=== PATIENT | male | born 1940 | race Caucasian/White ===

== ENCOUNTER 2016-08-24 12:18 | Emergency (ER) | payer OTHER, MEDICAID ==
[~2016-08-24] VITALS: Ht 182.9 cm; Wt 60.0 kg
[~2016-08-24 12:18] MED LIST: ASPI81TA82 PO; INDO25CA PO; PERC5TAB12 PO; PRED20 PO; TIOT18I INH
[2016-08-24 12:23] VITALS: BP 133/63; PULSE 68; RESP 28; TEMP 97.9; O2SAT 96
[2016-08-24 12:59] VITALS: BP 119/68; PULSE 97; RESP 20; O2SAT 97
[2016-08-24 13:04] VITALS: O2SAT 97
[2016-08-24] MEDS ORDERED: RESP: ALBUTEROL 2.5 MG/3 ML NEB (SCH) INH ONE (13:15)
--- NOTE | 2016-08-24 13:29 | PD ---
HPI Chief Complaint: Respiratory Symptoms Time Seen by Provider: 13:24 Travel History International Travel<30 days: No Contact w/Intl Traveler<30days: No Traveled to known affect area: No History of Present Illness HPI 75-year-old male that presents to the ED for evaluation of shortness of breath as well as leg swelling. Patient has a chronic history of COPD and uses inhalers at home. Patient also has a history of dementia and is somewhat of a poor historian. Per family members decided to start a couple days ago. Per patient is bilaterally. History of gout but denies this feeling like gout. The patient is not painful at all. Patient has swelling on both lower legs around the ankles. No history of blood clots. Per family members he has lost some weight for the past couple of days. Unclear is because he is not eating or something else. Patient is very skinny on examination. He himself. Not complaining of any shortness of breath but per family he has been somewhat short of breath. More noticeable in the past month. History of old smoking a has not smoked for 5 years. Coughing phlegm but not more than usual. Patient is short of breath with movement. Takes no oxygen. Patient was seen by her primary care doctor for evaluation of this but he recommended that he comes here to get evaluated. He denies any chest pain. He complains of is of his sacrum that is painful when he sits but otherwise he has no other complaints. Per patient the pain is not severe and is 2 out of 10. No injuries that he can recall. Again history is somewhat limited because of the patient's mental status so most of the history is obtained from the family. 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) Social History Alcohol Use: No Tobacco Use: No Substance Use: No Allergies-Medications (Allergen,Severity, Reaction): Coded Allergies: No Known Allergies (Unverified , 07/24/15) Reported Meds & Prescriptions Reported Meds & Active Scripts Active Deltasone (Prednisone) 20 Mg Tab 2 Tab PO DAILY 5 Days Percocet 5-325 mg (Oxycodone/Acetaminophen) 1 Tab 1 Tab PO Q6H PRN Indomethacin 25 Mg Cap 25 Mg PO TID 7 Days Reported Spiriva 18 Mcg Oral Inh (Tiotropium [place]) 18 Mcg Inhp 18 Mcg INH DAILY Aspir-81 (Aspirin) 81 Mg Tab 81 Mg PO DAILY Review of Systems Except as stated in HPI: all other systems reviewed are Neg Physical Exam Narrative GENERAL: SKIN: Warm and dry. HEAD: Atraumatic. Normocephalic. EYES: Pupils equal and round. No scleral icterus. No injection or drainage. ENT: No nasal bleeding or discharge. Mucous membranes pink and moist. Tongue is midline. No blood deviation. NECK: Trachea midline. No JVD. CARDIOVASCULAR: Regular rate and rhythm. No murmurs, S3, S4. RESPIRATORY: No accessory muscle use. Mild rales heard in expiration on the lower lung alejandre. Breath sounds equal bilaterally. GASTROINTESTINAL: Abdomen soft, non-tender, nondistended. Hepatic and splenic margins not palpable. MUSCULOSKELETAL: Extremities without clubbing, cyanosis, or edema. No obvious deformities. Full range of motion of the upper and lower extremities bilaterally. 2+ pulses bilaterally. Mild tenderness to palpation around the tailbone on the sacrum of the lower back. No lumbar, thoracic, cervical spine tenderness to palpation. Patient is very skinny. 1+ pitting edema on the lower legs. Some mild erythema noted on the medial aspect of the left medial ankle. Not Warm to touch. Nontender. NEUROLOGICAL: Awake and alert. No obvious cranial nerve deficits. Motor grossly within normal limits. Five out of 5 muscle strength in the arms and legs. Normal speech. PSYCHIATRIC: Appropriate mood and affect; insight and judgment normal. Data Data Last Documented VS Vital Signs Date Time Temp Pulse Resp B/P Pulse Ox O2 Delivery O2 Flow Rate FiO2 08/24/16 13:04 97 Room Air 08/24/16 13:01 20 08/24/16 12:59 97 119/68 08/24/16 12:23 97.9 Orders Electrocardiogram (08/24/16 13:01) Complete Blood Count With Diff (08/24/16 13:01) Comprehensive Metabolic Panel (08/24/16 13:01) Ckmb (Isoenzyme) Profile (08/24/16 13:01) Troponin I (08/24/16 13:01) B-Type Natriuretic Peptide (08/24/16 13:01) Urinalysis - C+S If Indicated (08/24/16 13:01) Magnesium (Mg) (08/24/16 13:01) Thyroid Stimulating Hormone (08/24/16 13:01) Chest, Single Ap (08/24/16 13:01) Iv Access Insert/Monitor (08/24/16 13:01) Ecg Monitoring (08/24/16 13:01) Oximetry (08/24/16 13:01) Us Leg Venous Doppler Bilat (08/24/16 ) Albuterol Neb (Albuterol Neb) (08/24/16 13:15) Labs Laboratory Tests Test 08/24/16 13:15 White Blood Count 9.2 TH/MM3 Red Blood Count 4.55 MIL/MM3 Hemoglobin 14.1 GM/DL Hematocrit 41.6 % Mean Corpuscular Volume 91.5 FL Mean Corpuscular Hemoglobin 31.0 PG Mean Corpuscular Hemoglobin 33.9 % Concent Red Cell Distribution Width 13.0 % Platelet Count 313 TH/MM3 Mean Platelet Volume 8.2 FL Neutrophils (%) (Auto) 84.8 % Lymphocytes (%) (Auto) 8.6 % Monocytes (%) (Auto) 4.8 % Eosinophils (%) (Auto) 1.3 % Basophils (%) (Auto) 0.5 % Neutrophils # (Auto) 7.8 TH/MM3 Lymphocytes # (Auto) 0.8 TH/MM3 Monocytes # (Auto) 0.4 TH/MM3 Eosinophils # (Auto) 0.1 TH/MM3 Basophils # (Auto) 0.0 TH/MM3 CBC Comment DIFF FINAL Differential Comment Sodium Level 136 MEQ/L Potassium Level 4.3 MEQ/L Chloride Level 100 MEQ/L Carbon Dioxide Level 26.5 MEQ/L Anion Gap 10 MEQ/L Blood Urea Nitrogen 54 MG/DL Creatinine 2.33 MG/DL Estimat Glomerular Filtration 28 ML/MIN Rate Random Glucose 92 MG/DL Calcium Level 8.7 MG/DL Magnesium Level 2.2 MG/DL Total Bilirubin 0.4 MG/DL Aspartate Amino Transf 14 U/L (AST/SGOT) Alanine Aminotransferase 10 U/L (ALT/SGPT) Alkaline Phosphatase 52 U/L Total Creatine Kinase 31 U/L Troponin I LESS THAN 0.02 NG/ML B-Type Natriuretic Peptide 78 PG/ML Total Protein 7.8 GM/DL Albumin 3.0 GM/DL Thyroid Stimulating Hormone 1.260 uIU/ML 3rd Gen [facility] Medical Decision Making Medical Screen Exam Complete: Yes Emergency Medical Condition: Yes Medical Record Reviewed: Yes Interpretation(s) CBC & BMP Diagram 08/24/16 13:15 troponin and CKMB negative EKG shows sinus rhythm with no sign of acute ischemia or arrhythmia read by me and attending. Last Impressions Chest X-Ray 08/24/16 1301 Signed Impressions: Service Date/Time: Wednesday, August 24, 2016 13:34 - CONCLUSION: 1. Findings consistent with obstructive pulmonary disease with a small subcentimeter nodular opacity seen in the right midlung zone. Although this may be artifactual in etiology, pulmonary nodule cannot be excluded. Consider chest CT or oblique radiographs for further evaluation on an outpatient basis as clinically warranted. Maximilian Aiken MD Lower Extremity Ultrasound 08/24/16 0000 Signed Impressions: Service Date/Time: Monday, August 24, 2016 13:16 - CONCLUSION: No evidence of deep venous thrombosis within the lower extremities. Dayday Rice MD Differential Diagnosis COPD exacerbation versus dementia versus mass versus pneumonia versus CHF versus swelling versus DVT versus PE Narrative Course 75-year-old male that presents to the ED for evaluation of shortness of breath and lower leg swelling. Patient was properly examined and was found to have signs and symptoms of unclear etiology. February recommend labs and imaging. Patient was given breathing treatment here. No history of CHF. Patient does have a history of gout but this appears to be different from his normal gout per patient. Patient has swelling of both legs. Left leg does appear to be somewhat erythematous but not warm to the touch. 2+ pulses. No neurological deficits. Labs and imaging ordered. Labs and imaging show what appears to be acute kidney injury.". This is old or new. Case was discussed in my attending Dr. Espinosa who was made aware of findings recommends admission. His was discussed with the patient and the family and patient adamantly wants to leave. Per patient he does not want to stay in the hospital and wants to go home. Family and patient understands findings and recommendation to keep them to do further workup but he still declines. AMA: The risks of leaving against medical advice without further evaluation treatment were discussed with the patient. These risks include cardiac dysfunction, cardiac dysrhythmia, possible heart attack, possible stroke or . The patient indicated understanding of these risks and appeared to have the capacity to make this decision. Diagnosis Primary Impression: Left against medical advice Additional Impression: Acute kidney injury Patient Instructions: General Instructions Additional Instructions: F/u with your PCP. See ED if worst. Med/Other Pt SpecificInfo: No Change to Meds Disposition: 07 AGAINST MEDICAL ADVICE Condition: Stable Artur Lopez Aug 24, 2016 13:29
[2016-08-24 13:32] LABS: AUTOMATED NEUTROPHIL # 7.8 TH/MM3 (1.8-7.7); BASOPHIL % 0.5 % (0.0-2.0); EOSINOPHIL # 0.1 TH/MM3 (0-0.4); EOSINOPHIL % 1.3 % (0.0-4.0); HEMATOCRIT 41.6 % (39.0-51.0); HEMO FLAGS DIFF FINAL; LYMPH % 8.6 % (9.0-44.0); LYMPHOCYTE # 0.8 TH/MM3 (1.0-4.8); MEAN CELL VOLUME 91.5 FL (80.0-100.0); MEAN CORPUSCULAR HGB CONC 33.9 % (32.0-36.0); MONO % 4.8 % (0.0-8.0); NEUT % 84.8 % (16.0-70.0); PLATELET COUNT 313 TH/MM3 (150-450); RED BLOOD COUNT 4.55 MIL/MM3 (4.50-5.90); WHITE BLOOD COUNT 9.2 TH/MM3 (4.0-11.0)
[2016-08-24 13:51] LABS: ANION GAP 10 MEQ/L (5-15); AST (GOT) 14 U/L (15-37); BICARBONATE 26.5 MEQ/L (21.0-32.0); BLOOD UREA NITROGEN 54 MG/DL (7-18); CHLORIDE 100 MEQ/L (98-107); GLOMERULAR FILTRATION RATE 28 ML/MIN (>89); MAGNESIUM 2.2 MG/DL (1.5-2.5); POTASSIUM 4.3 MEQ/L (3.5-5.1); SODIUM (NA) 136 MEQ/L (136-145)
--- NOTE | 2016-08-24 14:01 | RADRPT ---
EXAM DATE/TIME: 08/24/2016 13:16 [facility] COMPARISON: No previous studies available for comparison. INDICATIONS : Bilateral leg swelling. MEDICAL HISTORY : Hypertension. Chronic obstructive pulmonary disease. Gout. Skin cancer. SURGICAL HISTORY : Lower lip sqaumous cell carcinoma removed. ENCOUNTER: Initial ACUITY: 4 - 6 days PAIN SCORE: 0/10 LOCATION: Bilateral legs. TECHNIQUE: Venous ultrasound of the left and right leg was performed from the inguinal ligament to the proximal calf. Real-time, color Doppler and spectral tracing, compression and augmentation techniques were us ed. FINDINGS: RIGHT LEG: There is normal compressibility of the deep venous system from the inguinal region to the proximal ca lf. No echogenic clot is seen in the lumen of the common femoral, femoral, popliteal, and posterior tibial veins. There is a normal response of the venous system to proximal and distal augmentation an d respiration. LEFT LEG: There is normal compressibility of the deep venous system from the inguinal region to the proximal ca lf. No echogenic clot is seen in the lumen of the common femoral, femoral, popliteal, and posterior tibial veins. There is a normal response of the venous system to proximal and distal augmentation an d respiration. CONCLUSION: No evidence of deep venous thrombosis within the lower extremities. Dayday Rice MD on August 24, 2016 at 13:59 Board Certified Radiologist. This report was verified electronically.
[2016-08-24 14:10] LABS: ALKALINE PHOSPHATASE 52 U/L (45-117); ALT (GPT) 10 U/L (12-78); TOTAL BILIRUBIN ADULT 0.4 MG/DL (0.2-1.0)
--- NOTE | 2016-08-24 14:12 | RADRPT ---
EXAM DATE/TIME: 08/24/2016 13:34 [facility] COMPARISON: No previous studies available for comparison. INDICATIONS : Patient is short of breath since yesterday. MEDICAL HISTORY : None. SURGICAL HISTORY : None. ENCOUNTER: Initial ACUITY: 1 day PAIN SCORE: 0/10 LOCATION: Bilateral chest FINDINGS: Lungs are hyperexpanded with minimal interstitial prominence similar to prior exam. There is a subtle subcentimeter nodular opacity seen in the right midlung zone peripherally which may reflect summatio n of shadows. Lungs are otherwise clear. Cardiomediastinal contours are within normal limits. Remaind er of the exam is unchanged. CONCLUSION: 1. Findings consistent with obstructive pulmonary disease with a small subcentimeter nodular opacity seen in the right midlung zone. Although this may be artifactual in etiology, pulmonary nodule cannot be excluded. Consider chest CT or oblique radiographs for further evaluation on an outpatient basis as clinically warranted. Maximilian Aiken MD on August 24, 2016 at 14:05 Board Certified Radiologist. This report was verified electronically.
[2016-08-24 14:14] LABS: CREATINE KINASE 31 U/L (39-308)
[2016-08-24 15:06] LABS: BLOOD, URINE TRACE (NEG); COMMENT (UR) CULT NOT INDICATED; CULTURE IF INDICATED CULT NOT INDICATED; GLUCOSE,URINE NEG (NEG); KETONE, URINE 10 mg/dL (NEG); MUCUS URINE FEW /lpf (OCC); NITRITE,URINE NEG (NEG); SQUAMOUS EPITHELIAL CELL URINE <1 /hpf (0-5); URINE COLOR YELLOW (YELLW/STRAW)
[2016-08-24 15:15] VITALS: BP 124/78
--- NOTE | 2016-08-25 15:17 | EKG ---
Date Performed: 08/24/2016 Time Performed: 13:10:21 PTAGE: 75 years EKG: Sinus rhythm WITH FREQUENT SUPRAVENTRICULAR PREMATURE COMPLEXES ABNORMAL RHYTHM ECG Compared to prior tracing no significant change PREVIOUS TRACING 07/24/2015 @ 09.48 DOCTOR: Alvarado Lopez Interpretating Date/Time 08/25/2016 15:15:46
== END 2016-08-24 15:17 | disposition left against medical advice (07) ==
LOC: NEPE 12:18
DX: N17.9 Acute kidney failure, unspecified (principal); R94.31 Abnormal electrocardiogram [ECG] [EKG]; F03.90 Unspecified dementia, unspecified severity, without behavioral disturbance, psychotic disturbance, mood disturbance, and anxiety; I10 Essential (primary) hypertension; Z53.21 Procedure and treatment not carried out due to patient leaving prior to being seen by health care provider
CPT/HCPCS: 71010; 80053; 81001; 82550; 83735; 83880; 84443; 84484; 85025; 93005; 93970; 94664; 99285; J7613

== ENCOUNTER 2017-10-03 19:46 | Inpatient (IN) ==
[2017-10-04 00:29] LABS: Baso % (Auto) 0.3 % (0.0-2.0); Eos # (Auto) 0.1 th/mm3 (0.0-0.4); Eos % (Auto) 0.6 % (0.0-4.0); Hematocrit 46.6 % (39.0-51.0); Hemoglobin 16.5 gm/dL (13.0-17.0); Lymph # (Auto) 1.4 th/mm3 (1.0-4.8); Lymph % (Auto) 9.3 % (9.0-44.0); Mean Corpuscular HGB Conc 35.3 % (32.0-36.0); Mean Corpuscular Hemoglobin 32.5 pg (27.0-34.0); Mean Corpuscular Volume 91.9 fL (80.0-100.0); Mean Platelet Volume 7.4 fL (7.0-11.0); Mono # (Auto) 0.9 th/mm3 (0.0-0.9); Mono % (Auto) 5.6 % (0.0-8.0); Neut # (Auto) 13.1 th/mm3 (1.8-7.7); Neut % (Auto) 84.2 % (16.0-70.0); Platelet Count 256 th/mm3 (150-450); Red Blood Count 5.08 mil/mm3 (4.50-5.90); Red Cell Distribution Width 14.1 % (11.6-17.2); White Blood Count 15.5 th/mm3 (4.0-11.0)
[2017-10-04 00:39] LABS: Activated Partial Thrombo Time 29.7 sec (24.3-30.1); INR 1.2 Ratio
[2017-10-04 00:43] LABS: Alanine Aminotransferase 17 U/L (12-78); Albumin 4.2 g/dL (3.4-5.0); Anion Gap 12 meq/L (5-15); Aspartate Aminotransferase 22 U/L (15-37); Blood Urea Nitrogen 21 mg/dL (7-18); Calcium 8.9 mg/dL (8.5-10.1); Carbon Dioxide 25.5 meq/L (21.0-32.0); Chloride 94 meq/L (98-107); Glomerular Filtration Rate 41 mL/min (>89); Glucose,Random 104 mg/dL (74-106); Lipase 88 U/L (73-393); Potassium 3.9 meq/L (3.5-5.1); Sodium 131 meq/L (136-145)
--- NOTE | 2017-10-04 00:43 | ED ---
HPI General Chief complaint: Back Pain/Injury Stated complaint: Time Seen by Provider: 10/04/17 00:07 Source: patient Limitations: no limitations History of Present Illness HPI narrative: The patient is a 76 year old male who presents to the [facility] emergency department with a history of inability to urinate for the last 2 days. The patient reports that he has never had this happen previously. The patient reports that he has been using regularly a new medication over the last 2 days, a nasal decongestant spray. He reports that he came into the emergency department this evening when he could not take the lower abdominal pain sensation of needing to urinate without being able to. He denies having any history of prostate hypertrophy. He denies seeing a urologist. He denies having any chest pain or chest pressure associated with this. He reports that he does have chronic shortness of breath is no worse than usual related to his COPD. On review of systems otherwise, the patient denies having any known recent fevers, increased productivity to his chronic cough, neck pain,vomiting, diarrhea, urinary symptoms, or neurologic symptoms. The patient reports that his last bowel movement was 2 days ago. Related Data Home Medications Medication Instructions Recorded Confirmed Aspir-81 81 mg PO ONCE 10/04/17 10/04/17 albuterol sulfate 2.5 mg INHALATION Q4H PRN 10/04/17 10/04/17 tiotropium bromide [Spiriva 2 puff INHALATION DAILY 10/04/17 10/04/17 Respimat] Allergies Allergy/AdvReac Type Severity Reaction Status Date / Time No Known Allergies Allergy Uncoded 07/24/15 09:28 Review of Systems ROS Unobtainable All other systems reviewed negative except as stated in HPI PMFSH Medical History Medical History Anxiety (Acute) COPD (chronic obstructive pulmonary disease) (Acute) Gout (Acute) Hypertension (Acute) Skin cancer (Acute) Surgical History Surgical History Status post surgical removal of malignant neoplasm of skin (Acute) Social History Social History Substance History: Active Abuse Smoking Status: Former smoker How Often Do You Have a Drink Containing Alcohol: 2 to 3 times a week Recent Travel in [facility] within the Last 8 Weeks: No Recent Out of Country Travel within the Last 8 Weeks: No Exam Const General: cooperative, no acute distress and well developed Nutritional Appearance: well nourished Orientation: alert, awake and oriented x3 HENMT Head: normocephalic and atraumatic Nose: no nasal discharge and no epistaxis Mouth: moist mucous membranes Throat: posterior oropharynx normal Eyes Sclera: normal sclerae Pupils: PERRL Neck Neck: normal visual inspection, no meningeal signs, trachea midline and no JVD Resp Effort & Inspection: no use of accessory muscles Auscultation: clear to auscultation bilaterally Cardio Rate: tachycardic (Heart rate of low 100s) Rhythm: abnormal rhythm (Irregularly irregular with telemetry that appears to be consistent with atrial fibrillation) Heart Sounds: no murmurs GI Inspection: non-distended Palpation: no hepatosplenomegaly and tender (Suprapubic distention) suprapubicly ; not in the LLQ, not in the RLQ, not in the LUQ and not in the RUQ Skin General: dry skin (warm) Neuro General: alert, awake and oriented x3 Cranial Nerves: other (No facial asymmetry) Speech: speech normal Motor: no movement abnormalities noted Extrem General: normal to inspection, no clubbing, no cyanosis and no edema Psych Mood: congruent mood Affect: normal affect Judgment: judgment good Course Consultations Consultation #1: The patient's case including history, pertinent physical examination findings, and laboratory studies were discussed with Dr. Chambers. It was agreed that the patient would be admitted to the hospitalist service. Initial Documented Vital Signs Temperature 97.8 F 10/03/17 20:57 Pulse Rate 118 H 10/03/17 20:57 Respiratory Rate 18 10/03/17 20:57 Blood Pressure 189/92 H 10/03/17 20:57 Pulse Oximetry 95 10/03/17 20:57 Last Documented Vital Signs Temperature 97.8 F 10/03/17 20:57 Pulse Rate 118 H 10/03/17 20:57 Respiratory Rate 18 10/03/17 20:57 Blood Pressure 189/92 H 10/03/17 20:57 Pulse Oximetry 95 10/03/17 20:57 Medical Decision Making MDM Narrative Medical decision making narrative: During the course of the patient's emergency department visit, the patient's history, examination, and differential diagnosis were reviewed with the patient. The patient was placed on a workforce development assistant with oximetry and frequent blood pressure monitoring. The patient had IV access obtained and blood work sent for analysis. Diagnostic evaluation was started regarding urinary. Regarding the patient's irregular heart rhythm and EKG was done. The patient's EKG reveals atrial fibrillation with RVR, heart rate of 100, QRS duration is 97 appears to be atrial fibrillation, no acute ST segment nonspecific ST-T wave abnormalities noted. This is compared to prior EKGs done at this facility and A. fib appears to be new. Patient is not aware of any prior history of atrial fibrillation. The patient's laboratory studies were remarkable for a white count of 15.5, neutrophil percent 82.4, platelets 256, hemoglobin 16.5, PT 12, PTT 29.7, chemistry reveals a total bilirubin of 1.2, sodium 131, GFR 41, creatinine 1.6 for which is actually improved compared to the patient's last creatinine at this facility, CK-MB 5.1, chloride 94, BUN 21, BNP 780. Chest x-ray shows evidence of COPD, no other acute abnormality. The patient will be admitted to the hospital for new onset atrial fibrillation. The patient's atrial fibrillation and urinary retention may be related to excessive nasal decongestent use over the last 2 days. The patient's results were discussed with the patient, including the plan of care. I explained that further testing and/ or monitoring is indicated based on the patient's history, examination, and/ or laboratory findings. Therefore, I recommended admission for additional evaluation. The patient expressed understanding and was agreeable with this plan. The patient was admitted to the hospital in stable condition and sent to a bed under the care of [facility] service. Differential Diagnosis Differential Diagnosis: Urinary retention related to benign prostatic hypertrophy, versus kidney failure Medical Records Medical records reviewed: Yes I reviewed the patient's medical records. Lab Data Lab results reviewed: Yes I reviewed the patient's lab results. Result diagrams: 10/04/17 00:20 10/04/17 00:20 Lab Results 10/04/17 10/04/17 10/04/17 Range/Units 00:20 00:20 00:20 WBC 15.5 H (4.0-11.0) th/mm3 RBC 5.08 (4.50-5.90) mil/mm3 Hgb 16.5 (13.0-17.0) gm/dL Hct 46.6 (39.0-51.0) % MCV 91.9 (80.0-100.0) fL MCH 32.5 (27.0-34.0) pg MCHC 35.3 (32.0-36.0) % RDW 14.1 (11.6-17.2) % Plt Count 256 (150-450) th/mm3 MPV 7.4 (7.0-11.0) fL Neut % (Auto) 84.2 H (16.0-70.0) % Lymph % (Auto) 9.3 (9.0-44.0) % [place] % (Auto) 5.6 (0.0-8.0) % Eos % (Auto) 0.6 (0.0-4.0) % Baso % (Auto) 0.3 (0.0-2.0) % Neut # (Auto) 13.1 H (1.8-7.7) th/mm3 Lymph # (Auto) 1.4 (1.0-4.8) th/mm3 [place] # (Auto) 0.9 (0.0-0.9) th/mm3 Eos # (Auto) 0.1 (0.0-0.4) th/mm3 Baso # (Auto) 0.0 (0.0-0.2) th/mm3 WBC Differential . Differential Comment Auto diff final PT 12.0 H (9.8-11.6) sec INR 1.2 Ratio APTT 29.7 (24.3-30.1) sec Sodium 131 L (136-145) meq/L Potassium 3.9 (3.5-5.1) meq/L Chloride 94 L (98-107) meq/L Carbon Dioxide 25.5 (21.0-32.0) meq/L Anion Gap 12 (5-15) meq/L BUN 21 H (7-18) mg/dL Creatinine 1.64 H (0.60-1.30) mg/dL Estimated GFR 41 L (>89) mL/min Random Glucose 104 (74-106) mg/dL Calcium 8.9 (8.5-10.1) mg/dL Total Bilirubin 1.2 H (0.2-1.0) mg/dL AST 22 (15-37) U/L ALT 17 (12-78) U/L Alkaline Phosphatase 51 (45-117) U/L Total Creatine Kinase 144 (39-308) U/L CK-MB (CK-2) 5.1 H (0.5-3.6) ng/mL Troponin I 0.02 (0.02-0.05) ng/mL B-Natriuretic Peptide (0-100) pg/mL Total Protein 8.1 (6.4-8.2) g/dL Albumin 4.2 (3.4-5.0) g/dL Lipase 88 (73-393) U/L Urine Color (Yellw/Straw) Urine Clarity (Clear) Urine pH (5.0-8.5) Ur Specific [place] (1.002-1.035) Urine Protein (Neg-Trace) mg/dL Urine Glucose (UA) (Negative) mg/dL Urine Ketones (Negative) mg/dL Urine Occult Blood (Negative) Urine Nitrate (Negative) Urine Bilirubin (Negative) Urine Urobilinogen (Less than 2) mg/dL Ur Leukocyte Esterase (Negative) Urine RBC (0-3) /hpf Urine WBC (0-5) /hpf Urine Mucus (Occasional) /lpf Micro UA Comment Urine Culture Comments 10/04/17 10/04/17 Range/Units 00:20 02:00 WBC (4.0-11.0) th/mm3 RBC (4.50-5.90) mil/mm3 Hgb (13.0-17.0) gm/dL Hct (39.0-51.0) % MCV (80.0-100.0) fL MCH (27.0-34.0) pg MCHC (32.0-36.0) % RDW (11.6-17.2) % Plt Count (150-450) th/mm3 MPV (7.0-11.0) fL Neut % (Auto) (16.0-70.0) % Lymph % (Auto) (9.0-44.0) % [place] % (Auto) (0.0-8.0) % Eos % (Auto) (0.0-4.0) % Baso % (Auto) (0.0-2.0) % Neut # (Auto) (1.8-7.7) th/mm3 Lymph # (Auto) (1.0-4.8) th/mm3 [place] # (Auto) (0.0-0.9) th/mm3 Eos # (Auto) (0.0-0.4) th/mm3 Baso # (Auto) (0.0-0.2) th/mm3 WBC Differential Differential Comment PT (9.8-11.6) sec INR Ratio APTT (24.3-30.1) sec Sodium (136-145) meq/L Potassium (3.5-5.1) meq/L Chloride (98-107) meq/L Carbon Dioxide (21.0-32.0) meq/L Anion Gap (5-15) meq/L BUN (7-18) mg/dL Creatinine (0.60-1.30) mg/dL Estimated GFR (>89) mL/min Random Glucose (74-106) mg/dL Calcium (8.5-10.1) mg/dL Total Bilirubin (0.2-1.0) mg/dL AST (15-37) U/L ALT (12-78) U/L Alkaline Phosphatase (45-117) U/L Total Creatine Kinase (39-308) U/L CK-MB (CK-2) (0.5-3.6) ng/mL Troponin I (0.02-0.05) ng/mL B-Natriuretic Peptide 780 H (0-100) pg/mL Total Protein (6.4-8.2) g/dL Albumin (3.4-5.0) g/dL Lipase (73-393) U/L Urine Color Yellow (Yellw/Straw) Urine Clarity Clear (Clear) Urine pH 5.0 (5.0-8.5) Ur Specific [place] 1.005 (1.002-1.035) Urine Protein Negative (Neg-Trace) mg/dL Urine Glucose (UA) Negative (Negative) mg/dL Urine Ketones Negative (Negative) mg/dL Urine Occult Blood Moderate H (Negative) Urine Nitrate Negative (Negative) Urine Bilirubin Negative (Negative) Urine Urobilinogen Less than 2 (Less than 2) mg/dL Ur Leukocyte Esterase Negative (Negative) Urine RBC 1 (0-3) /hpf Urine WBC 1 (0-5) /hpf Urine Mucus Few H (Occasional) /lpf Micro UA Comment Cath-culture not ind Urine Culture Comments Cath-cult not ind Imaging Data Radiologist's impression: Chest X-Ray 10/04/17 00:09 CONCLUSION: 1. Hyperinflation with some degree of COPD. 2. Probable nipple shadow in the right chest 3. No acute infiltrate ECG Data Attestation: I personally reviewed and interpreted this ECG as follows: Interpretation: The patient had an EKG done on arrival. The patient's EKG reveals atrial fibrillation with RVR with a heart rate of 100, nonspecific ST-T wave abnormalities, no acute ST segment elevation. QRS duration is 97 ms, QTC 413 ms. This is compared to a prior EKG done at this facility, last done August 24, 2016 which showed no evidence of atrial fibrillation and the patient does not recall any prior history of atrial fibrillation. Discharge Plan Discharge Disposition Patient Disposition: 30 Still Patient Discharge Details Diagnosis: New onset a-fib, Acute urinary retention Physicians Team ED Provider: Monica Babin Primary Care Provider: UNKNOWN, Attending Provider: Jennifer Chambers Other Providers: Major Prasad Status ED Status: Admitted Patient
[2017-10-04 00:46] LABS: Alkaline Phosphatase 51 U/L (45-117); Creatine Kinase 144 U/L (39-308); Total Protein 8.1 g/dL (6.4-8.2); Troponin I 0.02 ng/mL (0.02-0.05)
[2017-10-04 00:58] LABS: Creatine Kinase MB 5.1 ng/mL (0.5-3.6)
--- NOTE | 2017-10-04 01:13 | XR ---
EXAM DATE: 10/04/2017 12:33 AM EDT AGE/SEX: 76 years / Male INDICATIONS: Cough. CLINICAL DATA: This is the patient's initial encounter. Patient reports that signs and symptoms have been present for 1 day and indicates a pain score of 0/10. MEDICAL/SURGICAL HISTORY: None. None. COMPARISON: [facility] [place], CHEST SINGLE AP, 08/24/2016. . FINDINGS: A single AP view of the chest demonstrates symmetrically hyperinflated. No acute infiltrate or effusi on. Heart size is normal. Nodular density laterally in the right mid to lower chest may represent a nipple shadow. CONCLUSION: 1. Hyperinflation with some degree of COPD. 2. Probable nipple shadow in the right chest 3. No acute infiltrate Electronically signed by: Joe Granger MD 10/04/2017 1:12 AM EDT
[2017-10-04 02:18] LABS: Bilirubin,Urine Negative (Negative); Clarity,Urine Clear (Clear); Color,Urine Yellow (Yellw/Straw); Glucose,Urine (UA) Negative (Negative); Leukocyte Esterase,Urine Negative (Negative); Mucus,Urine Few /lpf (Occasional); Nitrite,Urine Negative (Negative); Specific Gravity,Urine 1.005 (1.002-1.035)
[2017-10-04] MEDS ORDERED: Acetaminophen 325 MG Tablet PO PRN (03:46)
[2017-10-04] MEDS ORDERED: Non-Formulary Drug (Aspir-81 81 MG) PO SCH (04:00)
[2017-10-04] MEDS ORDERED: Enoxaparin Inj 30 MG/0.3 ML Syringe SQ SCH (04:00)
--- NOTE | 2017-10-04 04:32 | P.HP ---
History of Present Illness Service: [facility] Primary Care Physician: UNKNOWN History of Present Illness: 76-year-old male with a past medical history significant for dementia, anxiety, COPD and hypertension presents to the emergency department for the evaluation of urinary retention. When I asked the patient why he is here, he tells me he cannot remember. History is provided by the brother who is bedside. The brother states that the patient called him this evening and stated that he had not been able to urinate in 2 days. He described severe pelvic and bilateral flank pain. The brother brought him to the emergency department for further evaluation. Castañeda catheter was placed in 1400 cc of urine collected. While here for evaluation, the patient was noted to be in A. fib with RVR. He has no history of atrial fibrillation. He is not on any anticoagulation. He has never been diagnosed with an abnormal heartbeat to his knowledge. 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 He denies any chest pain or shortness of breath. Abdominal pain has resolved. No nausea/vomiting/diarrhea. No fever/chills. No lateralizing signs/symptoms. Inpatient Certification: I certify that the inpatient services were ordered in accordance with Medicare regulations governing the order. This includes certification that hospital inpatient services are reasonable and necessary and in the case of services not specified as inpatient-only under 42 CFR 419.22(n), that they are appropriately provided as inpatient services in accordance to with the 2-midnight benchmark under 43 CFR 412.3(e) Estimated Total Length of Stay (Days): 2 Plans for Post Hospital Care: Home Review of Systems All other systems reviewed negative except as stated in HPI [facility] - History History Provided By: Patient - Medical History Medical History: Medical History (Last Updated 10/04/17 @ 00:39 by Monica Babin MD) Anxiety COPD (chronic obstructive pulmonary disease) Gout Hypertension Skin cancer - Surgical History Surgical History: Surgical History (Last Updated 10/04/17 @ 00:40 by Monica Babin MD) Status post surgical removal of malignant neoplasm of skin - Tobacco History Tobacco Use In Past 30 Days: No Smoking Status: Former smoker - Alcohol History How Often Do You Have a Drink Containing Alcohol: 2 to 3 times a week - Substance Use History Substance History: Active Abuse - Travel History Recent Travel in the [place] Within the Last 8 Weeks: No Recent Travel Out of the Country Within the Last 8 Weeks: No - Immunization History Tetanus Immunization: >5 Years Hx Influenza Vaccine This Season: Yes Medications and Allergies Active Medications: Active Medications Acetaminophen (Tylenol) 650 mg PO Q4H PRN PRN Reason: Temp > 100.4 Albuterol (*Albuterol Neb Periprocedure Only) 2.5 mg NEB Q4HR NEB PRN PRN Reason: Chest Pain Enoxaparin Sodium (Lovenox Inj) 60 mg SQ Q12HR TRAY Ondansetron HCl (Zofran Inj) 4 mg IV.PUSH Q6H PRN PRN Reason: NAUSEA OR VOMITING Sodium Chloride (Ns Flush) 2 ml IV.FLUSH PRN PRN PRN Reason: FLUSH AFTER USING IV ACCESS Tamsulosin HCl (Flomax) 0.4 mg PO DAILY TRAY Tiotropium [place] (Spiriva 18 Mcg Inh) 2 mcg INH DAILY TRAY Allergies Allergy/AdvReac Type Severity Reaction Status Date / Time No Known Allergies Allergy Uncoded 07/24/15 09:28 Home Medications Medication Instructions Recorded Confirmed Type Aspir-81 81 mg PO ONCE 10/04/17 10/04/17 History albuterol sulfate 2.5 mg INHALATION Q4H PRN 10/04/17 10/04/17 History tiotropium bromide [Spiriva 2 puff INHALATION DAILY 10/04/17 10/04/17 History Respimat] Exam Vital signs: Vital Signs 10/03/17 20:57 Temperature 97.8 F Pulse Rate 118 H Respiratory Rate 18 Blood Pressure 189/92 H Pulse Oximetry 95 Intake & Output 10/03/17 10/03/17 10/04/17 06:59 18:59 06:59 Weight 58.967 kg Narrative: Gen.: No acute distress Head: Normocephalic. Atraumatic. EENT: Pupils equal round and reactive to light. Nose without drainage. Airway intact. Throat without injection. Cardiovascular: Tachycardic. Irregularly irregular rhythm. No murmurs, rubs or gallops. Respiratory: Lungs clear to auscultation bilaterally. No wheezes or rhonchi. Abdomen: Soft, nontender, nondistended. No peritoneal signs. : Castañeda catheter in place. No CVA tenderness. No pelvic pain. Musculoskeletal: No gross deformities. No edema. Skin: No obvious rashes or erythema. Neuro: Sensory and motor grossly intact. Cranial nerves II through XII grossly intact. Psych: Pleasantly confused Results - Labs CBC & Chem 7: 10/04/17 00:20 10/04/17 00:20 Labs: Laboratory Results - last 24 hr 10/04/17 10/04/17 10/04/17 00:20 00:20 00:20 WBC 15.5 H RBC 5.08 Hgb 16.5 Hct 46.6 MCV 91.9 MCH 32.5 MCHC 35.3 RDW 14.1 Plt Count 256 MPV 7.4 Neut % (Auto) 84.2 H Lymph % (Auto) 9.3 [place] % (Auto) 5.6 Eos % (Auto) 0.6 Baso % (Auto) 0.3 Neut # (Auto) 13.1 H Lymph # (Auto) 1.4 [place] # (Auto) 0.9 Eos # (Auto) 0.1 Baso # (Auto) 0.0 WBC Differential . Differential Comment Auto diff final PT 12.0 H INR 1.2 APTT 29.7 Sodium 131 L Potassium 3.9 Chloride 94 L Carbon Dioxide 25.5 Anion Gap 12 BUN 21 H Creatinine 1.64 H Estimated GFR 41 L Random Glucose 104 Calcium 8.9 Total Bilirubin 1.2 H AST 22 ALT 17 Alkaline Phosphatase 51 Total Creatine Kinase 144 CK-MB (CK-2) 5.1 H Troponin I 0.02 B-Natriuretic Peptide Total Protein 8.1 Albumin 4.2 Lipase 88 Urine Color Urine Clarity Urine pH Ur Specific [place] Urine Protein Urine Glucose (UA) Urine Ketones Urine Occult Blood Urine Nitrate Urine Bilirubin Urine Urobilinogen Ur Leukocyte Esterase Urine RBC Urine WBC Urine Mucus Micro UA Comment Urine Culture Comments 10/04/17 10/04/17 00:20 02:00 WBC RBC Hgb Hct MCV MCH MCHC RDW Plt Count MPV Neut % (Auto) Lymph % (Auto) [place] % (Auto) Eos % (Auto) Baso % (Auto) Neut # (Auto) Lymph # (Auto) [place] # (Auto) Eos # (Auto) Baso # (Auto) WBC Differential Differential Comment PT INR APTT Sodium Potassium Chloride Carbon Dioxide Anion Gap BUN Creatinine Estimated GFR Random Glucose Calcium Total Bilirubin AST ALT Alkaline Phosphatase Total Creatine Kinase CK-MB (CK-2) Troponin I B-Natriuretic Peptide 780 H Total Protein Albumin Lipase Urine Color Yellow Urine Clarity Clear Urine pH 5.0 Ur Specific [place] 1.005 Urine Protein Negative Urine Glucose (UA) Negative Urine Ketones Negative Urine Occult Blood Moderate H Urine Nitrate Negative Urine Bilirubin Negative Urine Urobilinogen Less than 2 Ur Leukocyte Esterase Negative Urine RBC 1 Urine WBC 1 Urine Mucus Few H Micro UA Comment Cath-culture not ind Urine Culture Comments Cath-cult not ind - Imaging Impressions Chest X-Ray 10/04/17 00:09 CONCLUSION: 1. Hyperinflation with some degree of COPD. 2. Probable nipple shadow in the right chest 3. No acute infiltrate Caprini VTE Risk Assessment Caprini VTE Risk Assessment: Moderate/High Risk (score >= 2) Caprini Risk Assessment Model: Point Value = 1 Point Value = 2 Point Value = 3 Point Value = 5 Age 41-60 Minor surgery BMI > 25 kg/m2 Swollen legs Varicose veins or History of unexplained or recurrent spontaneous Oral contraceptives or hormone replacement Sepsis (< 1 month) Serious lung disease, including pneumonia (< 1 month) Abnormal pulmonary function Acute myocardial infarction Congestive heart failure (< 1 month) History of inflammatory bowel disease Medical patient at bed rest Age 61-74 Arthroscopic surgery Major open surgery (> 45 min) Laparoscopic surgery (> 45 min) Malignancy Confined to bed (> 72 hours) Immobilizing plaster cast Central venous access Age >= 75 History of VTE Family history of VTE Factor V Leiden Prothrombin [id number] Lupus anticoagulant Anticardiolipin antibodies Elevated serum homocysteine Heparin-induced thrombocytopenia Other congenital or acquired thrombophilia Stroke (< 1 month) Elective arthroplasty Hip, pelvis, or leg fracture Acute spinal cord injury (< 1 month) Prophylaxis Regimen: Total Risk Factor Score Risk Level Prophylaxis Regimen 0-1 Low Early ambulation 2 Moderate Order ONE of the following: *Sequential Compression Device (SCD) *Heparin 5000 units SQ BID 3-4 Higher Order ONE of the following medications: *Heparin 5000 units SQ TID *Enoxaparin/Lovenox 40 mg SQ daily (WT < 150 kg, CrCl > 30 mL/min) *Enoxaparin/Lovenox 30 mg SQ daily (WT < 150 kg, CrCl > 10-29 mL/min) *Enoxaparin/Lovenox 30 mg SQ BID (WT < 150 kg, CrCl > 30 mL/min) AND/OR *Sequential Compression Device (SCD) 5 or more Highest Order ONE of the following medications: *Heparin 5000 units SQ TID (Preferred with Epidurals) *Enoxaparin/Lovenox 40 mg SQ daily (WT < 150 kg, CrCl > 30 mL/min) *Enoxaparin/Lovenox 30 mg SQ daily (WT < 150 kg, CrCl > 10-29 mL/min) *Enoxaparin/Lovenox 30 mg SQ BID (WT < 150 kg, CrCl > 30 mL/min) AND *Sequential Compression Device (SCD) Assessment and Plan - Plan Assessment/plan: 1. New onset atrial fibrillation with rapid ventricular response EKG significant for atrial fibrillation with rapid ventricular response, pulse 100, no ST segment elevations or depressions, personally reviewed Therapeutic Lovenox until patient evaluated by cardiology for possible long- term anticoagulation Patient denies any chest pain or shortness of breath Per the patient's brother, the patient has been overusing his nasal spray recently 2. Urinary retention Unclear etiology Creatinine 1.64, was 2.33 on 08/24/16 Renal ultrasound pending Flomax Patient will likely need to be discharged with catheter and follow-up with urology as an outpatient 3. Dementia/anxiety/COPD/hypertension Continue home medications once reconciled FEN N.p.o. Electrolytes: Monitor and replete as needed Lovenox
[2017-10-04] MEDS: Enoxaparin Inj 60 MG/0.6 ML Syringe SQ SCH ×3 (04:55→21:11)
[2017-10-04] MEDS ORDERED: Tiotropium Bromide 18 MCG/ACT Inhaler INH SCH (09:00)
--- NOTE | 2017-10-04 09:25 | US ---
EXAM DATE: 10/04/2017 9:22 AM EDT AGE/SEX: 76 years / Male INDICATIONS: Hematuria. CLINICAL DATA: This is the patient's initial encounter. Patient reports that signs and symptoms have been present for 1 day and indicates a pain score of 0/10. MEDICAL/SURGICAL HISTORY: . COPD. Gout. Anxiety. HTN. Skin cancer. . Malignant neoplasm of ski n removed. COMPARISON: No prior exams available for comparison. MEASUREMENTS: Right Kidney:__11.3 x 4.6 x 4.7 cm Left Kidney:__9.6 x 5.3 x 5.9 cm FINDINGS: Right Kidney: The right kidney is normal in size and shape with 2 simple appearing cysts in the mid c entral region. These measure 2.3 x 2.2 x 2 cm and 1.2 x 0.9 x 1 cm. Left Kidney: Normal echotexture and cortical thickness. No mass or hydronephrosis. Bladder: Castañeda catheter is present. Bladder decompressed. There are multiple small echogenic foci [place] the bladder wall which could represent gas. Other: None. CONCLUSION: 1. No solid mass, renal calculi or hydronephrosis. 2. Castañeda catheter in the bladder which is decompressed. There are multiple small areas of echogenic foci which may represent gas. This finding could be secondary to the instrumentation. Electronically signed by: Qamar Alanis MD 10/04/2017 9:24 AM EDT
--- NOTE | 2017-10-04 12:01 | P.PNIM ---
Subjective Interval history: Pleasantly confused. States that he is not having palpitations or any chest pain. Asked what time it is. Physical Exam Vital signs: Vital Signs 10/03/17 20:57 10/04/17 08:14 Temperature 97.8 F Pulse Rate 118 H 82 Respiratory Rate 18 17 Blood Pressure 189/92 H 114/78 Pulse Oximetry 95 95 Intake & Output 10/03/17 10/04/17 10/04/17 18:59 06:59 18:59 Output Total 1700 / 1700 Balance -1700 / -1700 Weight 58.967 kg Output: Urine Amount (Catheter) 1700 / 1700 Indwelling Urethral Catheter 1700 / 1700 Narrative: GENERAL: This is a well-nourished, well-developed patient, in no apparent distress. CARDIOVASCULAR: Irregular rate regular rhythm RESPIRATORY: Clear to auscultation. Breath sounds equal bilaterally. No wheezes , rales, or rhonchi. GASTROINTESTINAL: Abdomen soft, non-tender, nondistended. Normal active bowel sounds MUSCULOSKELETAL: Extremities without clubbing, cyanosis, or edema. Atrophic NEURO: Pleasant, awake and alert to person but not to place time and situation - Urinary Catheter Management Indwelling Urethral Catheter Cath placed during this visit: yes Reason for continuing: Chronic Urinary Retention Insertion date: 10/04/17 Insertion time: 00:35 Results - Labs CBC & Chem 7: 10/04/17 00:20 10/04/17 00:20 Laboratory Results - last 24 hr 10/04/17 10/04/17 10/04/17 00:20 00:20 00:20 WBC 15.5 H RBC 5.08 Hgb 16.5 Hct 46.6 MCV 91.9 MCH 32.5 MCHC 35.3 RDW 14.1 Plt Count 256 MPV 7.4 Neut % (Auto) 84.2 H Lymph % (Auto) 9.3 [place] % (Auto) 5.6 Eos % (Auto) 0.6 Baso % (Auto) 0.3 Neut # (Auto) 13.1 H Lymph # (Auto) 1.4 [place] # (Auto) 0.9 Eos # (Auto) 0.1 Baso # (Auto) 0.0 WBC Differential . Differential Comment Auto diff final PT 12.0 H INR 1.2 APTT 29.7 Sodium 131 L Potassium 3.9 Chloride 94 L Carbon Dioxide 25.5 Anion Gap 12 BUN 21 H Creatinine 1.64 H Estimated GFR 41 L Random Glucose 104 Calcium 8.9 Total Bilirubin 1.2 H AST 22 ALT 17 Alkaline Phosphatase 51 Total Creatine Kinase 144 CK-MB (CK-2) 5.1 H Troponin I 0.02 B-Natriuretic Peptide Total Protein 8.1 Albumin 4.2 Lipase 88 Urine Color Urine Clarity Urine pH Ur Specific [place] Urine Protein Urine Glucose (UA) Urine Ketones Urine Occult Blood Urine Nitrate Urine Bilirubin Urine Urobilinogen Ur Leukocyte Esterase Urine RBC Urine WBC Urine Mucus Micro UA Comment Urine Culture Comments 10/04/17 10/04/17 00:20 02:00 WBC RBC Hgb Hct MCV MCH MCHC RDW Plt Count MPV Neut % (Auto) Lymph % (Auto) [place] % (Auto) Eos % (Auto) Baso % (Auto) Neut # (Auto) Lymph # (Auto) [place] # (Auto) Eos # (Auto) Baso # (Auto) WBC Differential Differential Comment PT INR APTT Sodium Potassium Chloride Carbon Dioxide Anion Gap BUN Creatinine Estimated GFR Random Glucose Calcium Total Bilirubin AST ALT Alkaline Phosphatase Total Creatine Kinase CK-MB (CK-2) Troponin I B-Natriuretic Peptide 780 H Total Protein Albumin Lipase Urine Color Yellow Urine Clarity Clear Urine pH 5.0 Ur Specific [place] 1.005 Urine Protein Negative Urine Glucose (UA) Negative Urine Ketones Negative Urine Occult Blood Moderate H Urine Nitrate Negative Urine Bilirubin Negative Urine Urobilinogen Less than 2 Ur Leukocyte Esterase Negative Urine RBC 1 Urine WBC 1 Urine Mucus Few H Micro UA Comment Cath-culture not ind Urine Culture Comments Cath-cult not ind - Imaging Impressions Abdomen/Bladder Ultrasound 10/04/17 00:00 CONCLUSION: 1. No solid mass, renal calculi or hydronephrosis. 2. Castañeda catheter in the bladder which is decompressed. There are multiple small areas of echogenic foci which may represent gas. This finding could be secondary to the instrumentation. Chest X-Ray 10/04/17 00:09 CONCLUSION: 1. Hyperinflation with some degree of COPD. 2. Probable nipple shadow in the right chest 3. No acute infiltrate Assessment and Plan - Plan 1. New onset atrial fibrillation with rapid ventricular response EKG significant for atrial fibrillation with rapid ventricular response, pulse 100, no ST segment elevations or depressions, personally reviewed Therapeutic Lovenox until patient evaluated by cardiology for possible long- term anticoagulation Patient denies any chest pain or shortness of breath Per the patient's brother, the patient has been overusing his nasal spray recently Will initiate Lopressor twice daily Check 2D echo Chads score 2, aspirin initiated and may consider Eliquis long-term. 2. Acute kidney injury superimposed on chronic kidney disease stage III with underlying urinary retention Unclear etiology, Castañeda catheter placed. Creatinine 1.64, was 2.33 on 08/24/16 Renal ultrasound pending Flomax Patient will likely need to be discharged with catheter and follow-up with urology as an outpatient 3. Dementia/anxiety/COPD/hypertension Continue home medications once reconciled 4. DVT prophylaxis Lovenox
[2017-10-04] MEDS: Metoprolol Tartrate 25 MG Tablet PO SCH ×2 (13:18→21:11)
--- NOTE | 2017-10-04 16:30 | MB ---
cc: Solis Sykes MD DATE: 10/04/2017 REFERRING PHYSICIAN: Jennifer Chambers MD CHIEF COMPLAINT: Atrial fibrillation with rapid ventricular rate. HISTORY OF PRESENT ILLNESS: Mr. Felix Doty is a very pleasant 76-year-old gentleman. He has a past medical history of dementia, anxiety, COPD, hypertension, who was recently evaluated in the emergency room for urinary retention. The patient underwent a catheterization with a Castañeda catheter, and approximately 1400 mL of urine was collected. He then subsequently was noted to be in atrial fibrillation with rapid ventricular response with heart rates in the 100s, and subsequently Cardiology was consulted. The patient is a very poor historian. He cannot recall the time, date, but is alert and oriented to himself and place. According to the patient, he has never been seen by a men's designer. He reports that this is his first episode of atrial fibrillation. According to the patient, he lives in a trailer with a friend, who is responsible for medication administration. The patient did overall denies any episode of bleeding. The patient otherwise denied any chest pain, PND, orthopnea, lower extremity edema, syncope or presyncope. PAST MEDICAL HISTORY: Anxiety, COPD, gout, hypertension, skin cancer, new-onset atrial fibrillation. The patient has a CHADS2-VASc score of 3 for age greater than 75 and hypertension. PAST SURGICAL HISTORY: He has got a history of surgical removal of malignant neoplasm of the skin. SOCIAL HISTORY: Tobacco history: He is a former smoker. He reports alcohol consumption 2 or 3 times a week. FAMILY HISTORY: No sudden cardiac . MEDICATIONS: Reviewed in electronic medical system. He is currently on: 1. Albuterol. 2. Tamsulosin. 3. Spiriva. ALLERGIES: REVIEWED IN ELECTRONIC MEDICAL RECORD. PHYSICAL EXAMINATION: VITAL SIGNS: Blood pressure is 140/62, heart rate is 101. GENERAL: In no acute distress. EYES: No scleral icterus. OROPHARYNX: Moist mucous membranes. CARDIOVASCULAR: Irregularly irregular. Normal S1, S2. LUNGS: Mild lower extremity wheezes. ABDOMEN: Soft, nontender, nondistended. EXTREMITIES: No significant edema. NEUROLOGIC: Awake and alert to place and self. PSYCHIATRIC: Pleasant. LABORATORY DATA: Reviewed in electronic medical record. He has a white count of 15, and he has a creatinine of 1.64. ASSESSMENT: New-onset atrial fibrillation with rapid ventricular response. PLAN: We greatly appreciate the opportunity to participate in the care of Mr. Felix Doty. I agree with the idea of initiating Lopressor. His CHADS2-VASc score is 3 for hypertension and age greater than 75. As such, he would be a candidate for oral anticoagulation. Unfortunately, the patient has dementia, which may be somewhat prohibitive, however, he does report that he has a care system which would allow him to undergo treatment in a reliable fashion. As such, I would recommend Eliquis 5 mg p.o. b.i.d., as the patient does not have any other contraindications to being on a 2.5 mg dose. The patient should follow up with Cardiology within 1-2 weeks and assess for compliance. Thank you for allowing us to participate in the care of Mr. Felix Doty. Please feel free to contact us with any further questions regarding his care. MD GRIS Jovel/juan r/ginger , 01:22 PM , 01:34 PM
--- NOTE | 2017-10-04 18:44 | ECG ---
Date Performed: 10/03/2017 Time Performed: 23:56:44 PTAGE: 76 years EKG: Sinus rhythm VERY FREQUENT PACS NONSUSTAINED ATRIAL TACHYCARDIA ST DEVIATION AND MODERATE T-WAVE ABNORMALITY ABNO RMAL ECG Since the PREVIOUS TRACING , no significant change noted DOCTOR: Tasha Lynn Interpretating Date/Time 10/04/2017 18:43:08
[2017-10-05 09:41] LABS: Baso # (Auto) 0.1 th/mm3 (0.0-0.2); Baso % (Auto) 0.7 % (0.0-2.0); Eos # (Auto) 0.1 th/mm3 (0.0-0.4); Eos % (Auto) 1.7 % (0.0-4.0); Hematocrit 40.4 % (39.0-51.0); Hemoglobin 13.9 gm/dL (13.0-17.0); Lymph # (Auto) 1.2 th/mm3 (1.0-4.8); Lymph % (Auto) 14.4 % (9.0-44.0); Mean Corpuscular HGB Conc 34.5 % (32.0-36.0); Mean Corpuscular Hemoglobin 31.9 pg (27.0-34.0); Mean Corpuscular Volume 92.6 fL (80.0-100.0); Mean Platelet Volume 7.4 fL (7.0-11.0); Mono # (Auto) 0.5 th/mm3 (0.0-0.9); Neut # (Auto) 6.4 th/mm3 (1.8-7.7); Neut % (Auto) 77.2 % (16.0-70.0); Platelet Count 210 th/mm3 (150-450); Red Blood Count 4.36 mil/mm3 (4.50-5.90); Red Cell Distribution Width 14.5 % (11.6-17.2); White Blood Count 8.3 th/mm3 (4.0-11.0)
[2017-10-05] MEDS: Enoxaparin Inj 60 MG/0.6 ML Syringe SQ SCH (09:51)
[2017-10-05] MEDS: Metoprolol Tartrate 25 MG Tablet PO SCH ×2 (09:51→21:30)
[2017-10-05] MEDS: Tiotropium Bromide 18 MCG/ACT Inhaler INH SCH (09:53)
--- NOTE | 2017-10-05 10:22 | P.PNIM ---
Subjective Interval history: Doing okay. No complaint of chest pain or palpitations. No shortness of breath. Physical Exam Vital signs: Vital Signs 10/04/17 12:00 10/04/17 16:00 10/04/17 20:00 Temperature 97.8 F 97.5 F L Pulse Rate 109 H 68 98 H Respiratory Rate 20 20 Blood Pressure 92/69 L 97/63 L Pulse Oximetry 96 95 10/05/17 00:00 10/05/17 04:00 Temperature 97.7 F Pulse Rate 64 70 Respiratory Rate 18 Blood Pressure 112/55 L Pulse Oximetry 94 L Intake & Output 10/04/17 10/05/17 10/05/17 18:59 06:59 18:59 Intake Total 240 / 240 360 / 360 Output Total 2049 / 2049 250 / 250 Balance -1810 / -1810 110 / 110 Weight 52.5 kg Intake: Oral 240 / 240 360 / 360 Output: Urine 350 / 350 250 / 250 Urine Amount (Catheter) 1700 / 1700 Indwelling Urethral Catheter 1700 / 1700 Other: # Bowel Movements 0 Narrative: GENERAL: This is a well-nourished, well-developed patient, in no apparent distress. CARDIOVASCULAR: Irregular rate regular rhythm RESPIRATORY: Clear to auscultation. Breath sounds equal bilaterally. No wheezes , rales, or rhonchi. GASTROINTESTINAL: Abdomen soft, non-tender, nondistended. Normal active bowel sounds MUSCULOSKELETAL: Extremities without clubbing, cyanosis, or edema. Atrophic NEURO: Pleasant, awake and alert to person and place. - Urinary Catheter Management Indwelling Urethral Catheter Cath placed during this visit: yes Reason for continuing: Acute urinary retention Insertion date: 10/04/17 Insertion time: 00:35 Results - Labs CBC & Chem 7: 10/05/17 09:11 10/04/17 00:20 Laboratory Results - last 24 hr 10/05/17 09:11 WBC 8.3 RBC 4.36 L Hgb 13.9 D Hct 40.4 MCV 92.6 MCH 31.9 MCHC 34.5 RDW 14.5 Plt Count 210 MPV 7.4 Neut % (Auto) 77.2 H Lymph % (Auto) 14.4 [place] % (Auto) 6.0 Eos % (Auto) 1.7 Baso % (Auto) 0.7 Neut # (Auto) 6.4 Lymph # (Auto) 1.2 [place] # (Auto) 0.5 Eos # (Auto) 0.1 Baso # (Auto) 0.1 WBC Differential . Differential Comment Auto diff final Assessment and Plan - Plan 1. New onset atrial fibrillation with rapid ventricular response EKG significant for atrial fibrillation with rapid ventricular response, pulse 100, Therapeutic Lovenox and was switched over to Eliquis today Patient denies any chest pain or shortness of breath Per the patient's brother, the patient has been overusing his nasal spray recently Will initiate Lopressor twice daily Check 2D echo and await results currently Chads score 2, aspirin initiated and will start Eliquis long-term. 2. Acute kidney injury superimposed on chronic kidney disease stage III with underlying urinary retention Unclear etiology, Castañeda catheter placed. Creatinine 1.64, was 2.33 on 08/24/16 Renal ultrasound pending Flomax Patient will likely need to be discharged with catheter and follow-up with urology as an outpatient; We will try a trial of voiding in the next 24 hours. 3. Dementia/anxiety/COPD/hypertension Continue home medications once reconciled 4. DVT prophylaxis Lovenox, will switch over to eliquis
[2017-10-05 10:23] LABS: Calcium 8.3 mg/dL (8.5-10.1); Carbon Dioxide 26.7 meq/L (21.0-32.0); Potassium 3.9 meq/L (3.5-5.1)
[2017-10-06] MEDS ORDERED: Haloperidol Inj 5 MG/ML Ampul IV.PUSH ONE (02:50)
[2017-10-06 07:38] LABS: Hematocrit 40.4 % (39.0-51.0); Mean Corpuscular HGB Conc 34.7 % (32.0-36.0); Mean Corpuscular Hemoglobin 32.3 pg (27.0-34.0); Mean Corpuscular Volume 92.9 fL (80.0-100.0); Mean Platelet Volume 7.4 fL (7.0-11.0); Platelet Count 214 th/mm3 (150-450); Red Blood Count 4.35 mil/mm3 (4.50-5.90); Red Cell Distribution Width 13.7 % (11.6-17.2)
[2017-10-06 08:11] LABS: Calcium 8.6 mg/dL (8.5-10.1); Carbon Dioxide 28.4 meq/L (21.0-32.0); Potassium 4.2 meq/L (3.5-5.1)
--- NOTE | 2017-10-06 09:16 | P.DS ---
Date of admission: 10/04/17 03:40 Primary care physician: UNKNOWN Anticipated date of discharge: 10/06/17 Brief History from admission: 76-year-old male with a past medical history significant for dementia, anxiety, COPD and hypertension presents to the emergency department for the evaluation of urinary retention. When I asked the patient why he is here, he tells me he cannot remember. History is provided by the brother who is bedside. The brother states that the patient called him this evening and stated that he had not been able to urinate in 2 days. He described severe pelvic and bilateral flank pain. The brother brought him to the emergency department for further evaluation. Castañeda catheter was placed in 1400 cc of urine collected. While here for evaluation, the patient was noted to be in A. fib with RVR. He has no history of atrial fibrillation. He is not on any anticoagulation. He has never been diagnosed with an abnormal heartbeat to his knowledge. He has no anesthesiologist assistant. He denies any chest pain or shortness of breath. Abdominal pain has resolved. No nausea/vomiting/diarrhea. No fever/chills. No lateralizing signs/symptoms. DS: Diagnosis - Discharge Diagnosis (1) New onset a-fib Status: Acute Diagnosis: Principal (2) Acute urinary retention Status: Resolved Diagnosis: Secondary DS: Summary Hospital Course: These are the medical issues addressed during this hospitalization: 1. New onset atrial fibrillation with rapid ventricular response EKG significant for atrial fibrillation with rapid ventricular response, pulse 100, Therapeutic Lovenox and was switched over to Eliquis during hospitalization Patient denies any chest pain or shortness of breath Will initiate Lopressor twice daily which controlled heart rate well. Check 2D echo with results currently pending Chads score 2, aspirin initiated and will start Eliquis long-term. Patient to be referral for follow-up with anesthesiologist assistant Dr. philipp Sykes 2. Acute kidney injury superimposed on chronic kidney disease stage III with underlying urinary retention Unclear etiology, Castañeda catheter placed and removed. Creatinine 1.64, was 2.33 on 08/24/16 Renal ultrasound showed no significant findings and no hydronephrosis Flomax initiated during the hospitalization We will try a trial of voiding in the next 24 hours to remove Castañeda catheter. 3. Dementia/anxiety/COPD/hypertension Continue home medications 4. DVT prophylaxis Lovenox and switch over to eliquis on 10/05 At this time, patient has gained maximum benefit and ready to be discharged to home with home health care. - Time Spent with Patient Total time spent providing and/or coordinating discharge services: Less than 30 minutes - Quality: VTE Deep Vein Thrombosis/Pulmonary Embolism Present on Admission: No Exam Vital signs: Vital Signs 10/05/17 12:00 10/05/17 16:00 10/05/17 20:00 Temperature 98.0 F 97.5 F L 97.4 F L Pulse Rate 68 61 72 Respiratory Rate 18 18 18 Blood Pressure 101/57 L 125/68 110/69 Pulse Oximetry 96 95 93 L 10/06/17 00:00 10/06/17 04:00 10/06/17 08:00 Temperature 97.6 F 97.1 F L 97.4 F L Pulse Rate 80 64 70 Respiratory Rate 18 18 17 Blood Pressure 117/81 104/63 145/94 H Pulse Oximetry 95 93 L 96 Intake & Output 10/05/17 10/06/17 10/06/17 18:59 06:59 18:59 Intake Total 360 / 360 240 / 240 Output Total 400 / 400 Balance 360 / 360 -160 / -160 Weight 51.9 kg Intake: Oral 360 / 360 240 / 240 Output: Urine 400 / 400 Other: # Voids 1 Date of Last Bowel Movement 10/06/17 # Bowel Movements 1 Results Procedures completed during hospitalization: none Labs on day of discharge: Labs from last 24 hours 10/06/17 10/06/17 10/05/17 06:26 06:26 09:11 WBC 7.0 RBC 4.35 L Hgb 14.0 Hct 40.4 MCV 92.9 MCH 32.3 MCHC 34.7 RDW 13.7 Plt Count 214 MPV 7.4 Neut % (Auto) Lymph % (Auto) [place] % (Auto) Eos % (Auto) Baso % (Auto) Neut # (Auto) Lymph # (Auto) [place] # (Auto) Eos # (Auto) Baso # (Auto) WBC Differential Differential Comment Sodium 132 L 134 L Potassium 4.2 3.9 Chloride 96 L 101 Carbon Dioxide 28.4 26.7 Anion Gap 8 6 BUN 18 23 H Creatinine 0.90 1.07 Estimated GFR 82 L 67 L Random Glucose 85 91 Calcium 8.6 8.3 L 10/05/17 09:11 WBC 8.3 RBC 4.36 L Hgb 13.9 D Hct 40.4 MCV 92.6 MCH 31.9 MCHC 34.5 RDW 14.5 Plt Count 210 MPV 7.4 Neut % (Auto) 77.2 H Lymph % (Auto) 14.4 [place] % (Auto) 6.0 Eos % (Auto) 1.7 Baso % (Auto) 0.7 Neut # (Auto) 6.4 Lymph # (Auto) 1.2 [place] # (Auto) 0.5 Eos # (Auto) 0.1 Baso # (Auto) 0.1 WBC Differential . Differential Comment Auto diff final Sodium Potassium Chloride Carbon Dioxide Anion Gap BUN Creatinine Estimated GFR Random Glucose Calcium - Impressions ITS Impressions Abdomen/Bladder Ultrasound 10/04/17 00:00 CONCLUSION: 1. No solid mass, renal calculi or hydronephrosis. 2. Castañeda catheter in the bladder which is decompressed. There are multiple small areas of echogenic foci which may represent gas. This finding could be secondary to the instrumentation. Chest X-Ray 10/04/17 00:09 CONCLUSION: 1. Hyperinflation with some degree of COPD. 2. Probable nipple shadow in the right chest 3. No acute infiltrate Discharge Plan - Discharge Disposition Patient Disposition: Disch W/Home Health Service - Discharge Condition Condition: Good - Discharge Order Discharge Orders: Discharge Order (Routine); Ordered 10/06/17 Ordered By: Kia New - Discharge Details Anticipated Discharge Date: 10/06/17 - Physicians Team Primary Care Provider: UNKNOWN, Attending Provider: Kia New Other Providers: Major Prasad DO ; [employer] ; [facility]
--- NOTE | 2017-10-06 09:17 | P.DCO ---
- Home Health Nursing Order: Medical education, Medication education-adverse effect, Nursing assessment with vital signs - Certification I have seen patient Felix Doty on 10/06/17. My clinical findings support the need for the requested home health care services because: Medication compliance is questionable, Limited ability to care for self I certify that my clinical findings support that this patient is homebound because: Unsafe to leave home unassisted
[2017-10-06] MEDS: Metoprolol Tartrate 25 MG Tablet PO SCH (10:24)
[2017-10-06] MEDS: Tiotropium Bromide 18 MCG/ACT Inhaler INH SCH (10:25)
--- NOTE | 2017-10-06 12:38 | ECHRPT ---
Indication: ATRIAL FIB CONCLUSIONS Normal left ventricular size. Mild concentric left ventricular hypertrophy. The left ventricular systolic function is moderately reduced with an estimated ejection fraction in the range of 40-45%. The left ventricle is not well visualized. The left atrial size is moderately dilated. Trivial pulmonary valve regurgitation. BP: / HR: Rhythm: Sinus MEASUREMENTS (Male / Female) Normal Values Technical Quality:Very technically difficult study M-MODE LV Diastolic Diameter MM 5.0 cm 4.2 - 5.9 / 3.9 - 5.3 cm LV Systolic Diameter MM 4.2 cm LV Ejection Fraction MM Teich 34.2 % IVS Diastolic Thickness MM 1.2 cm 0.6 - 1.0 / 0.6 - 0.9 cm LVPW Diastolic Thickness MM 1.2 cm 0.6 - 1.0 / 0.6 - 0.9 cm LV Relative Wall Thickness MM 0.5 0.24 - 0.42 / 0.22 - 0.42 Aortic Root Diameter MM 2.7 cm AV Cusp Separation MM 2.0 cm DOPPLER PV Peak Velocity 70.6 cm/s PV Peak Gradient 2.0 mmHg FINDINGS LEFT VENTRICLE Normal left ventricular size. Mild concentric left ventricular hypertrophy. The left ventricular systolic function is moderately reduced with an estimated ejection fraction in the range of 40-45%. The left ventricle is not well visualized. LEFT ATRIUM The left atrial size is moderately dilated. PULMONARY VALVE Trivial pulmonary valve regurgitation. Giovany Nieves MD, FACC (Electronically Signed) Final Date:06 October 2017 12:37
[2017-10-06 13:32] VITALS: BP 105/67; RESP 18; TEMP 97.5; O2SAT 97
[2017-10-06 20:38] VITALS: PULSE 64
== END 2017-10-06 17:40 | disposition home health service (06) ==
LOC: NEPE 19:46 → NEDA 10-04 03:40 → N04 10-04 08:25
PROVIDERS: ADMIT Family Medicine; ATTEND Family Medicine

== ENCOUNTER 2017-10-11 21:40 | Inpatient (IN) ==
--- NOTE | 2017-10-11 21:49 | ED ---
HPI General Chief complaint: Urogenital-Male Stated complaint: medical Time Seen by Provider: 10/11/17 21:45 Source: patient, family and EMS Limitations: no limitations and altered mental status History of Present Illness HPI Narrative: 76-year-old male patient presents to the ER today brought in by EMS because apparently he is complaining of burning with urination, and penile pain. He apparently has had problems with urinary retention several weeks ago according to the patient's son. He states he has been having some problems recently. He denies any vomiting, fevers, or other symptoms. Related Data Home Medications Medication Instructions Recorded Confirmed albuterol sulfate 2.5 mg INHALATION Q4H PRN 10/04/17 10/11/17 tiotropium bromide [Spiriva 2 puff INHALATION DAILY 10/04/17 10/11/17 Respimat] Previous Rx's Medication Instructions Recorded apixaban [Eliquis] 2.5 mg PO BID #60 tab 10/05/17 metoprolol tartrate 25 mg PO BID #60 tab 10/05/17 tamsulosin 0.4 mg PO DAILY #30 cap 10/05/17 Allergies Allergy/AdvReac Type Severity Reaction Status Date / Time No Known Allergies Allergy Unverified 10/04/17 08:16 Review of Systems ROS Unobtainable unobtainable due to mental status PMFSH History History Provided By: Patient Medical History Medical History Anxiety (Acute) COPD (chronic obstructive pulmonary disease) (Acute) Gout (Acute) Hypertension (Acute) Skin cancer (Acute) Surgical History Surgical History Status post surgical removal of malignant neoplasm of skin (Acute) Social History Social History Substance History: No History of Abuse Second Hand Smoke Exposure: No Smoking Status: Former smoker Tobacco Type: Cigarettes How Often Do You Have a Drink Containing Alcohol: Never Recent Travel in [facility] within the Last 8 Weeks: No Recent Out of Country Travel within the Last 8 Weeks: No Exam Narrative Exam Narrative: GENERAL: Well-developed elderly white male patient currently in moderate distress, holding onto his penis. Awake and oriented 3. SKIN: Focused skin assessment warm/dry. HEAD: Atraumatic. Normocephalic. EYES: Pupils equal and round. No scleral icterus. No injection or drainage. ENT: No nasal bleeding or discharge. Mucous membranes pink and moist. NECK: Trachea midline. No JVD. CARDIOVASCULAR: Regular rate and rhythm. No murmur appreciated. RESPIRATORY: No accessory muscle use. Clear to auscultation. Breath sounds equal bilaterally. GASTROINTESTINAL: Abdomen soft, tense palpable bladder, suprapubic tenderness, nondistended. Hepatic and splenic margins not palpable. MUSCULOSKELETAL: No obvious deformities. No clubbing. No cyanosis. No edema. NEUROLOGICAL: Awake and alert. No obvious cranial nerve deficits. Motor grossly within normal limits. Normal speech. PSYCHIATRIC: Appropriate mood and affect; insight and judgment normal. Course Hospital Course: Patient was given a Castañeda catheter due to history of difficulty urinating, 1500 cc was obtained. He then had a small amount of hematuria after that. He is on Eliquis. Lab work does show UTI and IV antibiotics were initiated after cultures have been drawn. His lab work also shows significant hyponatremia and IV fluids were initiated as well. At this point, case is discussed with Dr. Gan for admission. And on discussion, we have also discussed doing a CT of the head to rule out acute intracranial processes as well considering his history. Planning to admit for further treatment. Initial Documented Vital Signs Pulse Rate 85 10/11/17 21:50 Last Documented Vital Signs Temperature 97.8 F 10/11/17 22:03 Pulse Rate 81 10/11/17 22:07 Respiratory Rate 18 10/11/17 22:03 Blood Pressure 139/87 10/11/17 22:03 Pulse Oximetry 95 10/11/17 22:07 Discharge Plan Discharge Details Anticipated Discharge Date: 10/11/17 Physicians Team ED Provider: Tesha Koehler Primary Care Provider: UNKNOWN, Rxs /Orders / Referrals /Forms Prescriptions: No Action albuterol sulfate 2.5 mg /3 mL (0.083 %) Solution For Nebulization 2.5 mg INHALATION Q4H PRN (Reason: Chest Pain) RF: 0 tiotropium bromide [Spiriva Respimat] 1.25 mcg/actuation Mist 2 puff INHALATION DAILY RF: 0 tamsulosin 0.4 mg Capsule,Extended Release 24hr 0.4 mg PO DAILY Qty: 30 RF: 0 metoprolol tartrate 25 mg Tablet 25 mg PO BID Qty: 60 RF: 0 apixaban [Eliquis] 2.5 mg Tablet 2.5 mg PO BID Qty: 60 RF: 0 Discharge Interventions Interventions: Vital Signs Last Done: 10/11/17 21:50 Status ED Status: With Doctor Medical Decision Making MDM Narrative Medical decision making narrative: UTI versus urinary outflow obstruction Lab Data Result diagrams: 10/11/17 22:10 10/11/17 22:10 Lab Results 10/11/17 10/11/17 10/11/17 Range/Units 22:10 22:10 22:10 WBC 10.1 (4.0-11.0) th/mm3 RBC 4.43 L (4.50-5.90) mil/mm3 Hgb 14.3 (13.0-17.0) gm/dL Hct 40.9 (39.0-51.0) % MCV 92.2 (80.0-100.0) fL MCH 32.2 (27.0-34.0) pg MCHC 34.9 (32.0-36.0) % RDW 14.0 (11.6-17.2) % Plt Count 275 (150-450) th/mm3 MPV 7.2 (7.0-11.0) fL Neut % (Auto) 80.9 H (16.0-70.0) % Lymph % (Auto) 9.8 (9.0-44.0) % [place] % (Auto) 6.5 (0.0-8.0) % Eos % (Auto) 2.2 (0.0-4.0) % Baso % (Auto) 0.6 (0.0-2.0) % Neut # (Auto) 8.2 H (1.8-7.7) th/mm3 Lymph # (Auto) 1.0 (1.0-4.8) th/mm3 [place] # (Auto) 0.7 (0.0-0.9) th/mm3 Eos # (Auto) 0.2 (0.0-0.4) th/mm3 Baso # (Auto) 0.1 (0.0-0.2) th/mm3 WBC Differential . Differential Comment Auto diff final Sodium 128 L (136-145) meq/L Potassium 3.8 (3.5-5.1) meq/L Chloride 95 L (98-107) meq/L Carbon Dioxide 23.8 (21.0-32.0) meq/L Anion Gap 9 (5-15) meq/L BUN 15 (7-18) mg/dL Creatinine 1.12 (0.60-1.30) mg/dL Estimated GFR 64 L (>89) mL/min Random Glucose 107 H (74-106) mg/dL Calcium 8.6 (8.5-10.1) mg/dL Total Bilirubin 0.9 (0.2-1.0) mg/dL AST 14 L (15-37) U/L ALT 16 (12-78) U/L Alkaline Phosphatase 45 (45-117) U/L Troponin I Less than 0.02 L (0.02-0.05) ng/mL Total Protein 7.3 (6.4-8.2) g/dL Albumin 3.5 (3.4-5.0) g/dL Urine Color Yellow (Yellw/Straw) Urine Clarity Hazy H (Clear) Urine pH 7.0 (5.0-8.5) Ur Specific [place] 1.008 (1.002-1.035) Urine Protein Negative (Neg-Trace) mg/dL Urine Glucose (UA) Negative (Negative) mg/dL Urine Ketones Negative (Negative) mg/dL Urine Occult Blood Large H (Negative) Urine Nitrate Negative (Negative) Urine Bilirubin Negative (Negative) Urine Urobilinogen Less than 2 (Less than 2) mg/dL Ur Leukocyte Esterase Moderate H (Negative) Urine RBC 3 (0-3) /hpf Urine WBC 25 H (0-5) /hpf Ur Renal Epithelial Cell <1 (None) /hpf Amorphous Sediment Rare H (None) /hpf Urine Bacteria Few H (None) /hpf Micro UA Comment Cath-culture ind Urine Culture Comments Cath-cult indicated
[2017-10-11 22:36] LABS: Baso # (Auto) 0.1 th/mm3 (0.0-0.2); Baso % (Auto) 0.6 % (0.0-2.0); Eos # (Auto) 0.2 th/mm3 (0.0-0.4); Eos % (Auto) 2.2 % (0.0-4.0); Hematocrit 40.9 % (39.0-51.0); Hemoglobin 14.3 gm/dL (13.0-17.0); Lymph % (Auto) 9.8 % (9.0-44.0); Mean Corpuscular HGB Conc 34.9 % (32.0-36.0); Mean Corpuscular Hemoglobin 32.2 pg (27.0-34.0); Mean Corpuscular Volume 92.2 fL (80.0-100.0); Mean Platelet Volume 7.2 fL (7.0-11.0); Mono # (Auto) 0.7 th/mm3 (0.0-0.9); Mono % (Auto) 6.5 % (0.0-8.0); Neut # (Auto) 8.2 th/mm3 (1.8-7.7); Neut % (Auto) 80.9 % (16.0-70.0); Platelet Count 275 th/mm3 (150-450); Red Blood Count 4.43 mil/mm3 (4.50-5.90); White Blood Count 10.1 th/mm3 (4.0-11.0)
[2017-10-11 22:54] LABS: Amorphous Sediment,Urine Rare /hpf; Bacteria,Urine Few /hpf; Bilirubin,Urine Negative (Negative); Clarity,Urine Hazy (Clear); Color,Urine Yellow (Yellw/Straw); Glucose,Urine (UA) Negative (Negative); Leukocyte Esterase,Urine Moderate (Negative); Nitrite,Urine Negative (Negative); Renal Epithelial Cells,Urine <1 /hpf; Specific Gravity,Urine 1.008 (1.002-1.035)
[2017-10-11 22:56] LABS: Albumin 3.5 g/dL (3.4-5.0); Anion Gap 9 meq/L (5-15); Aspartate Aminotransferase 14 U/L (15-37); Blood Urea Nitrogen 15 mg/dL (7-18); Calcium 8.6 mg/dL (8.5-10.1); Carbon Dioxide 23.8 meq/L (21.0-32.0); Chloride 95 meq/L (98-107); Glomerular Filtration Rate 64 mL/min (>89); Glucose,Random 107 mg/dL (74-106); Potassium 3.8 meq/L (3.5-5.1); Sodium 128 meq/L (136-145)
[2017-10-11 22:57] LABS: Alanine Aminotransferase 16 U/L (12-78)
[2017-10-11 23:00] LABS: Alkaline Phosphatase 45 U/L (45-117); Total Protein 7.3 g/dL (6.4-8.2)
[2017-10-11] MEDS ORDERED: Piperacil/Tazo 3.375 GM Premix 50 ML IV.SIG ONE (23:29)
[2017-10-11] MEDS ORDERED: Sodium Chlor 0.9% Inj 500 ML IV.SIG ONE (23:29)
[2017-10-12] MEDS ORDERED: Temazepam 15 MG Capsule PO PRN (00:01)
[2017-10-12] MEDS ORDERED: Bisacodyl 10 MG Supp RECTAL PRN (00:01)
--- NOTE | 2017-10-12 00:29 | P.HPIM ---
History of Present Illness Primary Care Physician: UNKNOWN History of Present Illness: 76-year-old male with a recent diagnosis of atrial fibrillation, dementia, anxiety, COPD, hypertension who presented to the ER secondary to urinary retention, dysuria. On my examination the patient is a very poor historian, cannot tell me why he is here, is disoriented apart from knowing that he is in the hospital. I asked him why he is in the hospital, he says he does not know, however when I remind him that he came in with urethral pain he says he remembers. History is obtained from chart review and discussion with ED physician. Review of Systems All other systems reviewed negative except as stated in HPI PMFSH - History History Provided By: Patient - Medical History Medical History: Medical History (Last Reviewed 10/11/17 @ 21:48 by Tesha Koehler MD) Anxiety COPD (chronic obstructive pulmonary disease) Gout Hypertension Skin cancer - Surgical History Surgical History: Surgical History (Last Reviewed 10/11/17 @ 21:48 by Tesha Koehler MD) Status post surgical removal of malignant neoplasm of skin - Family History Family History: Family History (Last Updated 10/12/17 @ 00:28 by Franki Gan MD) Other No family history of abnormal heart rhythm - Tobacco History Second Hand Smoke Exposure: No Tobacco Use In Past 30 Days: No Smoking Status: Former smoker Tobacco Type: Cigarettes - Alcohol History How Often Do You Have a Drink Containing Alcohol: Never - Substance Use History Substance History: No History of Abuse - Travel History Recent Travel in the [place] Within the Last 8 Weeks: No Recent Travel Out of the Country Within the Last 8 Weeks: No - Immunization History Tetanus Immunization: >5 Years Hx Influenza Vaccine This Season: No Medications and Allergies Active Medications: Active Medications Al Hydroxide/Mg Hydroxide (Milk Of Magnesia Liq) 30 ml PO Q12H PRN PRN Reason: Mild Constipation Bisacodyl (Dulcolax Supp) 10 mg RECTAL DAILY PRN PRN Reason: SEVERE CONSITIPATION Ceftriaxone Sodium 2,000 mg/ (Sodium Chloride) 100 mls @ 200 mls/hr IV.SIG Q24H TRAY Ipratropium [place] (Atrovent Neb) 0.5 mg NEB Q4HR NEB PRN PRN Reason: SHORTNESS OF BREATH/WHEEZING Lactulose (Lactulose Liq) 30 ml PO DAILY PRN PRN Reason: SEVERE CONSITIPATION Metoprolol Tartrate (Lopressor) 25 mg PO BID TRAY Sennosides (Senokot) 17.2 mg PO Q12H PRN PRN Reason: Moderate Constipation Tamsulosin HCl (Flomax) 0.4 mg PO DAILY TRAY Temazepam (Restoril) 15 mg PO HS PRN PRN Reason: INSOMNIA Tiotropium [place] (Spiriva 18 Mcg Inh) 18 mcg INH DAILY TRAY Allergies Allergy/AdvReac Type Severity Reaction Status Date / Time No Known Allergies Allergy Unverified 10/04/17 08:16 Home Medications Medication Instructions Recorded Confirmed Type albuterol sulfate 2.5 mg INHALATION Q4H PRN 10/04/17 10/11/17 History tiotropium bromide [Spiriva 2 puff INHALATION DAILY 10/04/17 10/11/17 History Respimat] Exam Vital signs: Vital Signs 10/11/17 21:50 10/11/17 22:03 10/11/17 22:07 Temperature 97.8 F Pulse Rate 85 78 81 Respiratory Rate 18 Blood Pressure 139/87 Pulse Oximetry 95 95 Intake & Output 10/11/17 10/11/17 10/12/17 06:59 18:59 06:59 Output Total 1550 / 1550 Balance -1550 / -1550 Weight 74.843 kg Output: Urine Amount (Catheter) 1550 / 1550 Indwelling Urethral Catheter 1550 / 1550 Narrative: GENERAL: Patient lying in bed. Shivering. Oriented to the fact that he is in the hospital, however otherwise disoriented. SKIN: Warm and dry. HEAD: Atraumatic. Normocephalic. EYES: Pupils equal and round. No scleral icterus. No injection or drainage. ENT: No nasal bleeding or discharge. Mucous membranes pink and moist. NECK: Trachea midline. No JVD. CARDIOVASCULAR: Regular rate and rhythm. RESPIRATORY: No accessory muscle use. Clear to auscultation. Breath sounds equal bilaterally. GASTROINTESTINAL: Abdomen soft, non-tender, nondistended. Hepatic and splenic margins not palpable. MUSCULOSKELETAL: Extremities without clubbing, cyanosis. Only trace edema. No obvious deformities. NEUROLOGICAL: Somnolent, wakes up for exam. No obvious cranial nerve deficits. Motor grossly within normal limits. For out of 5 muscle strength in the arms and legs. Symmetric. Normal speech. PSYCHIATRIC: Appropriate mood and affect; insight and judgment normal. Results - Labs CBC & Chem 7: 10/11/17 22:10 10/11/17 22:10 Labs: Short CBC 10/11/17 Range/Units 22:10 WBC 10.1 (4.0-11.0) th/mm3 Hgb 14.3 (13.0-17.0) gm/dL Hct 40.9 (39.0-51.0) % Plt Count 275 (150-450) th/mm3 BMP 10/11/17 22:10 Sodium 128 L Potassium 3.8 Chloride 95 L Carbon Dioxide 23.8 BUN 15 Creatinine 1.12 Calcium 8.6 Cardiac Enzymes 10/11/17 Range/Units 22:10 Troponin I Less than 0.02 L (0.02-0.05) ng/mL Liver Function 10/11/17 Range/Units 22:10 Total Bilirubin 0.9 (0.2-1.0) mg/dL AST 14 L (15-37) U/L ALT 16 (12-78) U/L Alkaline Phosphatase 45 (45-117) U/L Albumin 3.5 (3.4-5.0) g/dL Urine 10/11/17 Range/Units 22:10 Urine Color Yellow (Yellw/Straw) Urine Clarity Hazy H (Clear) Urine pH 7.0 (5.0-8.5) Ur Specific [place] 1.008 (1.002-1.035) Urine Protein Negative (Neg-Trace) mg/dL Urine Glucose (UA) Negative (Negative) mg/dL Caprini VTE Risk Assessment Caprini VTE Risk Assessment: Moderate/High Risk (score >= 2) Caprini Risk Assessment Model: Point Value = 1 Point Value = 2 Point Value = 3 Point Value = 5 Age 41-60 Minor surgery BMI > 25 kg/m2 Swollen legs Varicose veins or History of unexplained or recurrent spontaneous Oral contraceptives or hormone replacement Sepsis (< 1 month) Serious lung disease, including pneumonia (< 1 month) Abnormal pulmonary function Acute myocardial infarction Congestive heart failure (< 1 month) History of inflammatory bowel disease Medical patient at bed rest Age 61-74 Arthroscopic surgery Major open surgery (> 45 min) Laparoscopic surgery (> 45 min) Malignancy Confined to bed (> 72 hours) Immobilizing plaster cast Central venous access Age >= 75 History of VTE Family history of VTE Factor V Leiden Prothrombin 39088C Lupus anticoagulant Anticardiolipin antibodies Elevated serum homocysteine Heparin-induced thrombocytopenia Other congenital or acquired thrombophilia Stroke (< 1 month) Elective arthroplasty Hip, pelvis, or leg fracture Acute spinal cord injury (< 1 month) Prophylaxis Regimen: Total Risk Factor Score Risk Level Prophylaxis Regimen 0-1 Low Early ambulation 2 Moderate Order ONE of the following: *Sequential Compression Device (SCD) *Heparin 5000 units SQ BID 3-4 Higher Order ONE of the following medications: *Heparin 5000 units SQ TID *Enoxaparin/Lovenox 40 mg SQ daily (WT < 150 kg, CrCl > 30 mL/min) *Enoxaparin/Lovenox 30 mg SQ daily (WT < 150 kg, CrCl > 10-29 mL/min) *Enoxaparin/Lovenox 30 mg SQ BID (WT < 150 kg, CrCl > 30 mL/min) AND/OR *Sequential Compression Device (SCD) 5 or more Highest Order ONE of the following medications: *Heparin 5000 units SQ TID (Preferred with Epidurals) *Enoxaparin/Lovenox 40 mg SQ daily (WT < 150 kg, CrCl > 30 mL/min) *Enoxaparin/Lovenox 30 mg SQ daily (WT < 150 kg, CrCl > 10-29 mL/min) *Enoxaparin/Lovenox 30 mg SQ BID (WT < 150 kg, CrCl > 30 mL/min) AND *Sequential Compression Device (SCD) Assessment and Plan - Plan //encephalopathy = Multifactorial. Patient likely with history of dementia, urinary retention and UTI on top of this. = I discussed with the ER physician who is agreed to order a CT head = UTI //Hyponatremia, acute on chronic. = Sodium 128 from 131 on recent admission -Patient appears to be adequately hydrated. Will order BNP, urine studies. = Follow-up urine studies, BNP will monitor. //Atrial fibrillation. Recent diagnosis. //CHF. With moderately reduced ejection fraction 4045% on recent echo = Continue home metoprolol. no sign of fluid overload. Check BNP. = Continue home meds as appropriate. //History of COPD. Stable. Duo nebs as necessary. //History of atrial fibrillation with RVR. Heart rate controlled. Continue on metoprolol. Will hold off on Eliquis for now due to hematuria Discussed Condition With: Patient, nurse, ED physician
[2017-10-12] MEDS: Metoprolol Tartrate 25 MG Tablet PO SCH ×3 (01:09→22:12)
--- NOTE | 2017-10-12 01:28 | CT ---
EXAM DATE: 10/12/2017 12:57 AM EDT AGE/SEX: 76 years / Male INDICATIONS: Altered mental status. CLINICAL DATA: This is the patient's initial encounter. Patient reports that signs and symptoms have been present for 1 day and indicates a pain score of 0/10. MEDICAL/SURGICAL HISTORY: Hypertension. Chronic obstructive pulmonary disease. Skin cancer None. RADIATION DOSE: 56.35 CTDI (mGy) COMPARISON: No prior exams available for comparison. TECHNIQUE: CT of the head without contrast. Using automated exposure control and adjustment of the mA and/or kV according to patient size, radiation dose was kept as low as reasonably achievable to ob tain optimal diagnostic quality images. DICOM format image data is available electronically for revi ew and comparison. FINDINGS: Cerebrum: The ventricles are normal for age with moderate atrophic change with sulcal and ventricula r prominence. No evidence of midline shift, mass lesion, hemorrhage or acute infarction. No extraaxi al fluid collections are seen. Posterior Fossa: The cerebellum and brainstem are intact. The 4th ventricle is midline. The cerebe llopontine angle is unremarkable. Extracranial: The visualized portion of the orbits is intact. Skull: The calvaria is intact. No evidence of skull fracture. CONCLUSION: 1. No acute hemorrhage or mass effect. 2. Age-appropriate atrophic change. Electronically signed by: Qamar Alanis MD 10/12/2017 1:26 AM EDT
[2017-10-12 08:19] LABS: Calcium 8.3 mg/dL (8.5-10.1); Carbon Dioxide 24.9 meq/L (21.0-32.0); Potassium 4.2 meq/L (3.5-5.1)
[2017-10-12] MEDS: Tiotropium Bromide 18 MCG/ACT Inhaler INH SCH (08:46)
--- NOTE | 2017-10-12 12:01 | P.PN ---
Subjective Interval history: Follow-up for urinary tract infection. Patient is currently doing well. Denies any chest pain, shortness of breath, fever or chills. He does report dysuria at home. However he does not recall how he got to the hospital. He repeatedly asks where his truck is. Patient was brought to the hospital by ambulance. Physical Exam Vital signs: Vital Signs 10/11/17 21:50 10/11/17 22:03 10/11/17 22:07 Temperature 97.8 F Pulse Rate 85 78 81 Respiratory Rate 18 Blood Pressure 139/87 Pulse Oximetry 95 95 10/12/17 00:00 10/12/17 01:05 10/12/17 01:09 Temperature Pulse Rate 84 77 83 Respiratory Rate 20 Blood Pressure 118/61 127/80 127/80 Pulse Oximetry 10/12/17 04:00 10/12/17 07:40 10/12/17 11:14 Temperature 98.1 F 97.6 F 97.2 F L Pulse Rate 69 69 66 Respiratory Rate 17 16 Blood Pressure 106/58 L 97/57 L 105/54 L Pulse Oximetry 92 L 93 L 95 Intake & Output 10/11/17 10/12/17 10/12/17 18:59 06:59 18:59 Intake Total 650 / 650 Output Total 1550 / 1550 Balance -900 / -900 Weight 74.843 kg Intake: IV 650 / 650 Zosyn 3.375 GM Premix 50 ML @ 50 / 50 100 mls/hr IV.SIG ONCE ONE Rx#: [id number] NS Inj 500 ML @ Wide Open IV. 500 / 500 SIG BOLUS ONE Rx#:[id number] Rocephin Inj 2,000 MG In NS Inj 100 / 100 100 ML @ 200 mls/hr IV.SIG Q24H TRAY Rx#:[id number] Output: Urine Amount (Catheter) 1550 / 1550 Indwelling Urethral Catheter 1550 / 1550 Narrative: GENERAL: Alert, oriented 3, NAD. SKIN: Warm and dry. HEAD: Normocephalic. EYES: No scleral icterus. No injection or drainage. NECK: Supple, trachea midline. No JVD or lymphadenopathy. CARDIOVASCULAR: Regular rate and rhythm without murmurs, gallops, or rubs. RESPIRATORY: Breath sounds equal bilaterally. No accessory muscle use. GASTROINTESTINAL: Abdomen soft, non-tender, nondistended. MUSCULOSKELETAL: No cyanosis, or edema. BACK: Nontender without obvious deformity. No CVA tenderness. - Urinary Catheter Management Indwelling Urethral Catheter Cath placed during this visit: yes Reason for continuing: Acute urinary retention Insertion date: 10/11/17 Insertion time: 22:00 Results - Labs CBC & Chem 7: 10/11/17 22:10 10/12/17 06:45 Laboratory Results - last 24 hr 10/11/17 10/11/17 10/11/17 22:10 22:10 22:10 WBC 10.1 RBC 4.43 L Hgb 14.3 Hct 40.9 MCV 92.2 MCH 32.2 MCHC 34.9 RDW 14.0 Plt Count 275 MPV 7.2 Neut % (Auto) 80.9 H Lymph % (Auto) 9.8 [place] % (Auto) 6.5 Eos % (Auto) 2.2 Baso % (Auto) 0.6 Neut # (Auto) 8.2 H Lymph # (Auto) 1.0 [place] # (Auto) 0.7 Eos # (Auto) 0.2 Baso # (Auto) 0.1 WBC Differential . Differential Comment Auto diff final Sodium 128 L Potassium 3.8 Chloride 95 L Carbon Dioxide 23.8 Anion Gap 9 BUN 15 Creatinine 1.12 Estimated GFR 64 L Random Glucose 107 H Osmolality Lactic Acid Calcium 8.6 Total Bilirubin 0.9 AST 14 L ALT 16 Alkaline Phosphatase 45 Troponin I Less than 0.02 L B-Natriuretic Peptide Total Protein 7.3 Albumin 3.5 Urine Color Yellow Urine Clarity Hazy H Urine pH 7.0 Ur Specific [place] 1.008 Urine Protein Negative Urine Glucose (UA) Negative Urine Ketones Negative Urine Occult Blood Large H Urine Nitrate Negative Urine Bilirubin Negative Urine Urobilinogen Less than 2 Ur Leukocyte Esterase Moderate H Urine RBC 3 Urine WBC 25 H Ur Renal Epithelial Cell <1 Amorphous Sediment Rare H Urine Bacteria Few H Micro UA Comment Cath-culture ind Urine Culture Comments Cath-cult indicated Urine Osmolality Ur Random Sodium 10/11/17 10/11/17 10/11/17 22:10 22:10 22:10 WBC RBC Hgb Hct MCV MCH MCHC RDW Plt Count MPV Neut % (Auto) Lymph % (Auto) [place] % (Auto) Eos % (Auto) Baso % (Auto) Neut # (Auto) Lymph # (Auto) [place] # (Auto) Eos # (Auto) Baso # (Auto) WBC Differential Differential Comment Sodium Potassium Chloride Carbon Dioxide Anion Gap BUN Creatinine Estimated GFR Random Glucose Osmolality 273 L Lactic Acid Calcium Total Bilirubin AST ALT Alkaline Phosphatase Troponin I B-Natriuretic Peptide 326 H Total Protein Albumin Urine Color Urine Clarity Urine pH Ur Specific [place] Urine Protein Urine Glucose (UA) Urine Ketones Urine Occult Blood Urine Nitrate Urine Bilirubin Urine Urobilinogen Ur Leukocyte Esterase Urine RBC Urine WBC Ur Renal Epithelial Cell Amorphous Sediment Urine Bacteria Micro UA Comment Urine Culture Comments Urine Osmolality Ur Random Sodium 23 10/11/17 10/11/17 10/12/17 22:10 23:40 06:45 WBC RBC Hgb Hct MCV MCH MCHC RDW Plt Count MPV Neut % (Auto) Lymph % (Auto) [place] % (Auto) Eos % (Auto) Baso % (Auto) Neut # (Auto) Lymph # (Auto) [place] # (Auto) Eos # (Auto) Baso # (Auto) WBC Differential Differential Comment Sodium 135 L Potassium 4.2 Chloride 101 Carbon Dioxide 24.9 Anion Gap 9 BUN 13 Creatinine 1.04 Estimated GFR 70 L Random Glucose 91 Osmolality Lactic Acid 0.8 Calcium 8.3 L Total Bilirubin AST ALT Alkaline Phosphatase Troponin I B-Natriuretic Peptide Total Protein Albumin Urine Color Urine Clarity Urine pH Ur Specific [place] Urine Protein Urine Glucose (UA) Urine Ketones Urine Occult Blood Urine Nitrate Urine Bilirubin Urine Urobilinogen Ur Leukocyte Esterase Urine RBC Urine WBC Ur Renal Epithelial Cell Amorphous Sediment Urine Bacteria Micro UA Comment Urine Culture Comments Urine Osmolality 260 L Ur Random Sodium Microbiology 10/11/17 23:40 Blood - Peripheral Aerobic Blood Culture - Preliminary No growth in 1 day 10/11/17 23:40 Blood - Peripheral Anaerobic Blood Culture - Preliminary No growth in 1 day 10/11/17 23:30 Blood - Peripheral Aerobic Blood Culture - Preliminary No growth in 1 day 10/11/17 23:30 Blood - Peripheral Anaerobic Blood Culture - Preliminary No growth in 1 day - Imaging Impressions Head CT 10/12/17 00:00 CONCLUSION: 1. No acute hemorrhage or mass effect. 2. Age-appropriate atrophic change. Assessment and Plan - Plan Mr. Cano is a pleasant 76-year-old male with a history of BPH, atrial fibrillation, dementia, COPD who presented to the emergency department on 10/12/2017 due to urinary retention and dysuria. He was disoriented as well. He does not recall how he came to the hospital. Acute metabolic encephalopathy -Probably compounded by patient's dementia. Encephalopathy is improving. Patient is currently alert, oriented 3. -This episode is likely due to urinary tract infection. Urinary tract infection -Continue ceftriaxone 1 g every 24 hours. Urine cultures pending. Blood cultures negative so far. Hyponatremia -on admission sodium 128. Improved to 135. Atrial fibrillation -Continue metoprolol 25 mg twice daily. -He is currently not on any anticoagulation. He would qualify for oral anticoagulation. -Patient can discuss with his primary care provider regarding anticoagulant. Hx of COPD - continue ipratropium as needed. BPH -continue tamsulosin Full code. SCDs. Discharge plan: Once we have urine culture results, patient can likely be discharged home on oral antibiotics.
[2017-10-13 03:59] LABS: Baso # (Auto) 0.1 th/mm3 (0.0-0.2); Baso % (Auto) 1.2 % (0.0-2.0); Eos # (Auto) 0.3 th/mm3 (0.0-0.4); Eos % (Auto) 4.6 % (0.0-4.0); Hematocrit 37.7 % (39.0-51.0); Hemoglobin 13.1 gm/dL (13.0-17.0); Lymph # (Auto) 1.3 th/mm3 (1.0-4.8); Lymph % (Auto) 22.4 % (9.0-44.0); Mean Corpuscular HGB Conc 34.7 % (32.0-36.0); Mean Corpuscular Hemoglobin 32.1 pg (27.0-34.0); Mean Corpuscular Volume 92.4 fL (80.0-100.0); Mean Platelet Volume 7.2 fL (7.0-11.0); Mono # (Auto) 0.4 th/mm3 (0.0-0.9); Mono % (Auto) 7.7 % (0.0-8.0); Neut # (Auto) 3.6 th/mm3 (1.8-7.7); Neut % (Auto) 64.1 % (16.0-70.0); Platelet Count 245 th/mm3 (150-450); Red Blood Count 4.07 mil/mm3 (4.50-5.90); Red Cell Distribution Width 13.9 % (11.6-17.2); White Blood Count 5.7 th/mm3 (4.0-11.0)
[2017-10-13 04:25] LABS: Alanine Aminotransferase 10 U/L (12-78); Albumin 2.9 g/dL (3.4-5.0); Alkaline Phosphatase 37 U/L (45-117); Anion Gap 7 meq/L (5-15); Aspartate Aminotransferase 12 U/L (15-37); Blood Urea Nitrogen 15 mg/dL (7-18); Calcium 8.2 mg/dL (8.5-10.1); Carbon Dioxide 28.3 meq/L (21.0-32.0); Chloride 104 meq/L (98-107); Glomerular Filtration Rate 81 mL/min (>89); Glucose,Random 89 mg/dL (74-106); Potassium 3.9 meq/L (3.5-5.1); Sodium 139 meq/L (136-145); Total Protein 6.3 g/dL (6.4-8.2)
[2017-10-13 08:09] VITALS: BP 163/75; PULSE 65; RESP 18; TEMP 97.7; O2SAT 98
[2017-10-13] MEDS: Tiotropium Bromide 18 MCG/ACT Inhaler INH SCH (09:57)
[2017-10-13] MEDS: Metoprolol Tartrate 25 MG Tablet PO SCH (09:57)
--- NOTE | 2017-10-13 12:44 | P.PN ---
Subjective Interval history: Follow-up for urinary tract infection. Patient is currently doing well. Denies any chest pain, shortness of breath, dysuria, fever or chills. He wants to go home badly. Patient's brother states that patient has an appointment to see primary care doctor already. Physical Exam Vital signs: Vital Signs 10/12/17 15:48 10/12/17 19:56 10/13/17 00:00 Temperature 97.7 F 97.7 F Pulse Rate 73 104 H 68 Respiratory Rate 16 20 20 Blood Pressure 110/60 104/59 L 108/62 Pulse Oximetry 98 95 10/13/17 04:00 10/13/17 08:00 10/13/17 08:17 Temperature 98.6 F 97.7 F Pulse Rate 82 65 Respiratory Rate 20 18 Blood Pressure 110/58 L 163/75 H Pulse Oximetry 98 98 Intake & Output 10/12/17 10/13/17 10/13/17 18:59 06:59 18:59 Intake Total 100 / 100 Output Total 800 / 800 Balance 100 / 100 -800 / -800 Intake: IV 100 / 100 Rocephin Inj 1,000 MG In NS Inj 100 / 100 100 ML @ 200 mls/hr IV.SIG Q24H TRAY Rx#:[id number] Output: Urine 800 / 800 Narrative: GENERAL: Alert, oriented 3, NAD. SKIN: Warm and dry. HEAD: Normocephalic. EYES: No scleral icterus. No injection or drainage. NECK: Supple, trachea midline. No JVD or lymphadenopathy. CARDIOVASCULAR: Regular rate and rhythm without murmurs, gallops, or rubs. RESPIRATORY: Breath sounds equal bilaterally. No accessory muscle use. GASTROINTESTINAL: Abdomen soft, non-tender, nondistended. MUSCULOSKELETAL: No cyanosis, or edema. BACK: Nontender without obvious deformity. No CVA tenderness. - Urinary Catheter Management Indwelling Urethral Catheter Cath placed during this visit: yes Reason for continuing: Acute urinary retention Insertion date: 10/11/17 Insertion time: 22:00 Results - Labs CBC & Chem 7: 10/13/17 02:41 10/13/17 02:41 Laboratory Results - last 24 hr 10/11/17 10/13/17 10/13/17 22:10 02:41 02:41 WBC 5.7 RBC 4.07 L Hgb 13.1 Hct 37.7 L MCV 92.4 MCH 32.1 MCHC 34.7 RDW 13.9 Plt Count 245 MPV 7.2 Neut % (Auto) 64.1 Lymph % (Auto) 22.4 [place] % (Auto) 7.7 Eos % (Auto) 4.6 H Baso % (Auto) 1.2 Neut # (Auto) 3.6 Lymph # (Auto) 1.3 [place] # (Auto) 0.4 Eos # (Auto) 0.3 Baso # (Auto) 0.1 WBC Differential . Differential Comment Auto diff final Sodium 139 Potassium 3.9 Chloride 104 Carbon Dioxide 28.3 Anion Gap 7 BUN 15 Creatinine 0.91 Estimated GFR 81 L Random Glucose 89 Calcium 8.2 L Total Bilirubin 0.3 AST 12 L ALT 10 L Alkaline Phosphatase 37 L Total Protein 6.3 L D Albumin 2.9 L D Urine Color Yellow Urine Clarity Hazy H Urine pH 7.0 Ur Specific [place] 1.008 Urine Protein Negative Urine Glucose (UA) Negative Urine Ketones Negative Urine Occult Blood Large H Urine Nitrate Negative Urine Bilirubin Negative Urine Urobilinogen Less than 2 Ur Leukocyte Esterase Moderate H Urine RBC 3 Urine WBC 25 H Ur Renal Epithelial Cell <1 Amorphous Sediment Rare H Urine Bacteria Few H Micro UA Comment Cath-culture ind Urine Culture Comments Cath-cult indicated Microbiology 10/11/17 22:10 Catheterized Urine Urine Culture - Preliminary Staphylococcus coag negative 10/11/17 23:40 Blood - Peripheral Aerobic Blood Culture - Preliminary No growth in 2 days 10/11/17 23:40 Blood - Peripheral Anaerobic Blood Culture - Preliminary No growth in 2 days 10/11/17 23:30 Blood - Peripheral Aerobic Blood Culture - Preliminary No growth in 2 days 10/11/17 23:30 Blood - Peripheral Anaerobic Blood Culture - Preliminary No growth in 2 days Assessment and Plan - Plan Mr. Cano is a pleasant 76-year-old male with a history of BPH, atrial fibrillation, dementia, COPD who presented to the emergency department on 10/12/2017 due to urinary retention and dysuria. He was disoriented as well. He does not recall how he came to the hospital. Acute metabolic encephalopathy -Probably compounded by patient's dementia. Encephalopathy is improving. Patient is currently alert, oriented 3. -This episode is likely due to urinary tract infection. Urinary tract infection -Continue ceftriaxone 1 g every 24 hours. -Urine culture shows staph coag negative. -Upon discharge will provide patient ciprofloxacin for 7 days. Hyponatremia -on admission sodium 128. Improved to 135. Atrial fibrillation -Continue metoprolol 25 mg twice daily. -He is currently not on any anticoagulation. He would qualify for oral anticoagulation. -Patient can discuss with his primary care provider regarding anticoagulant. Hx of COPD - continue ipratropium as needed. BPH -continue tamsulosin Full code. SCDs. Discharge patient to home Condition on discharge: Improved Heart healthy diet as tolerated Ad Telma activity Rx written: Ciprofloxacin 500 mg every 12 hours for 7 days. Follow-up with primary care physician within 1 week.
== END 2017-10-13 12:30 | disposition home or self-care (01) ==
LOC: NEDA 21:40 → NEPE 21:40 → NEPFCDU 10-12 02:00
PROVIDERS: ADMIT Hospitalist; ATTEND Hospitalist